=== PATIENT | female | born 1950 | race Caucasian/White ===

== ENCOUNTER 2022-06-30 12:49 | Observation (INO) | payer MEDICARE, OTHER ==
[2022-06-30] MEDS ORDERED: Sodium Chloride 0.9% 1000 ML 1,000 ML IV SCH (13:15)
[2022-06-30 13:42] LABS: Absolute Neutrophil Ct (ANC) 6.93 x10^3/uL (1.4-6.9); Eosinophil % 3.1 % (0.00-5.0); Eosinophil (Absolute #) 0.34 x10^3/uL (0-0.5); Hematocrit 46.9 % (35-47); Hemoglobin 14.5 g/dL (12.0-16.0); Lymphocyte (Absolute #) 2.76 x10^3/uL (1.0-4.6); Lymphocytes % 24.8 % (24.0-44.0); Mean Cell Volume 98.3 fL (78-100); Mean Corpuscular Hemoglobin 30.4 pg (26-32); Mean Corpuscular Hgb Concent. 30.9 g/dL (32-36); Mean Platelet Volume 12.2 fL (7.5-11.0); Monocyte (Absolute #) 0.96 x10^3/uL (0.0-1.3); Monocytes % 8.6 % (0.0-12.0); Neutrophil % 62.3 % (36.0-66.0); Platelet Count 143 x10^3/uL (150-450); Red Blood Count 4.77 x10^6/uL (4.1-5.4); Red Cell Distribution Width 12.7 % (11.5-14.0); White Blood Count 11.1 x10^3/uL (4.0-10.5)
[2022-06-30] MEDS ORDERED: Sodium Chloride 0.9% 1000 ML 1,000 ML ONE (13:42)
[2022-06-30 13:49] LABS: ALBUMIN 3.6 g/dL (3.5-5.0); ANION GAP 8.2 MEQ/L (5-15); BILIRUBIN,TOTAL 0.6 mg/dL (0.2-1.3); Calcium 9.8 mg/dL (8.4-10.2); Creatinine 1 1.66 mg/dL (0.52-1.04); EST GLOMERULAR FILTRATION RATE 32.2 ML/MIN; Potassium 3.4 mmol/L (3.5-5.1); Total Protein 6.5 g/dL (6.3-8.2)
[2022-06-30 13:53] LABS: MAGNESIUM 2.3 mg/dL (1.6-2.3)
--- NOTE | 2022-06-30 14:37 | XRAY ---
Indication: Dementia. Status post fall. Multiple contiguous axial images obtained through the head without contrast. Comparison: None A few images near the vertex are slightly degraded by motion artifact. Age-appropriate global atrophy and moderate/advanced periventricular degenerative micro-ischemia bilaterally. Small remote lacunar infarct right basal ganglia. No gross acute intracranial hemorrhage, abnormal extra-axial fluid collection, or mass effect. Fourth ventricle is midline without hydrocephalus. Bony calvarium grossly intact. Visualized paranasal sinuses and mastoid air cells are clear. Impression: Minimal motion artifact. Grossly nonacute senile brain with remote lacunar infarct right basal ganglia.
[2022-06-30 15:03] LABS: Appearance Turbid (Clear); Bilirubin Negative (Negative); Blood NHT (Negative); Glucose Negative (Negative); Ketones Negative (Negative); Leukocyte Esterase Large (Negative); Nitrite Positive (Negative); Ph 6.5 (4.6-8.0); Protein,Urine Dip 30 (Negative); Specific Gravity 1.025 (1.005-1.030)
[2022-06-30 15:19] LABS: Bacteria Rare /HPF (None Seen); Epithelial Cells Rare /HPF (None Seen)
[2022-06-30 15:23] LABS: ADD URINE CULTURE? NO (NO)
[2022-06-30] MEDS ORDERED: Sodium Chloride 0.9% 500 ML 500 ML IV ONE (15:27)
[2022-06-30] MEDS ORDERED: ROCEPHIN 2 Gm-D5w 50ML BAG** 2 G/50 ML IVPB IV STA (15:45)
[2022-06-30] MEDS ORDERED: ROCEPHIN 2 Gm-D5w 50ML BAG** 2 G/50 ML IVPB IV ONE (16:01)
--- NOTE | 2022-06-30 16:13 | XRAY ---
Indication: Status post fall. Comparison: January 25, 2022 Portable chest demonstrates new minimal right costophrenic angle patchy infiltrate versus atelectasis. Remaining heart and lungs unremarkable again with incidental left hilar calcified nodes. Bony thorax intact again with osteopenia and degenerative changes.
--- NOTE | 2022-06-30 16:13 | XRAY ---
Indication: Pain following fall. Comparison: None 2 portable views right hip demonstrates osteopenia and tiny femur neck bone island. No other bony, articular, or soft tissue abnormalities.
[2022-06-30] MEDS ORDERED: APRESOLINE 20 MG/ML INJ IV ONE ×2 (16:24→18:13)
[2022-06-30] MEDS ORDERED: APRESOLINE 20 MG/ML INJ ONE (16:38)
--- NOTE | 2022-06-30 18:03 | ERPHSYRPT ---
- History of Present Illness Time Seen by Provider: 06/30/22 12:51 Source: patient, EMS, [facility] records Exam Limitations: clinical condition Patient Subjective Stated Complaint: Per nurse (Fariba) at [facility], patient fell at 1220 today. Patient c/o pain in left hip, shoulder, knee when assessed at the facility but staff unable to determine much else due to patient's mental status (dementia). Triage Nursing Assessment: Patient arrived by ambulance. She is alert to self; able to state name and correct date of . Patient is confused to time, place, situation. She does not remember falling. She denies pain anywhere at this time. She was lying on her left side and was able to independely roll over onto her back with verbal cues. She is able to independently draw both knees up herself with verbal cues. LLE is externally rotated but patient is able to move both BLE WNL without difficulties or C/O pain. No skin alterations noted at this time. Patient with a strong odor of urine upon arrival. Physician History: 71 years old resident of [facility] with advanced dementia who walks with a assist, was a little more confused than usual this morning and tried to walk by herself and fell from standing position on her hips. Questionable history of hitting her head. Patient on presentation is moving both lower extremities and a little pain on the palpation of right hip. No obvious injury navarrete. Patient is not in any distress. Patient denies any pain but history is limited secondary to her dementia. Patient is awake alert but not oriented at all which is her baseline. Occurred: just prior to arrival Reason for Fall: fell from standing pos Injuries/Pain Location: lower extremity Loss of Consciousness: no loss of consciousness Associated Symptoms (Fall): confusion Allergies/Adverse Reactions: venom-honey bee [bee venom (honey bee)] Allergy (Severe, Verified 06/30/22 13:08) Swelling of Tongue and Lips celecoxib [From Celebrex] Allergy (Verified 06/30/22 13:08) Penicillins Allergy (Verified 06/30/22 13:08) stay fresh Allergy (Severe, Uncoded 06/30/22 13:08) Swelling of Tongue and Lips produce wash Home Medications: Aspirin 81 gm Chew [Baby Aspirin 81 mg Chew] 81 mg PO DAILY 02/19/15 [History] Bisoprolol/Hydrochlorothiazide [Bisoprolol-Hctz 5-6.25 mg Tab] 1 each PO DAILY 02/19/15 [History] PARoxetine HCL [Paxil] 20 mg PO DAILY 02/19/15 [History] Hydrocodone/Acetaminophen [Vicodin 5-500 Tablet] 1 each PO DAILY PRN 02/26/15 [History] Hx Tetanus, Diphtheria Vaccination/Date Given: Yes Hx Influenza Vaccination/Date Given: Yes Hx Pneumococcal Vaccination/Date Given: Yes Immunizations Up to Date: Yes Travel Risk - International Travel Have you traveled outside of the country in past 3 weeks: No - Coronavirus Screening Are you exhibiting any of the following symptoms?: No Close contact with a COVID-19 positive Pt in past 14-21 Days: No - Vaccine Status Have you recieved a Covid-19 vaccination: No (UNKNOWN) - Review of Systems All Other Systems: Unable due to dementia - Past Medical History Pertinent Past Medical History: Yes Neurological History: Dementia ENT History: No Pertinent History Cardiac History: Arrhythmia, Deep Vein Thrombosis, High Cholesterol, Hypertension Respiratory History: No Pertinent History Endocrine Medical History: No Pertinent History Musculoskeletal History: Arthritis, Fractures, Osteoarthritis, Rheumatoid Arthritis GI Medical History: GI Bleed, Hemorrhoids, Hernia History: No Pertinent History Psycho-Social History: Anxiety, Depression, Panic Disorder Female Reproductive Disorders: Menstrual Problems, Other Other Medical History: rt wrist fx,benign breast tumors, anemia, hyperlipidemia - Past Surgical History Past Surgical History: Yes Neuro Surgical History: No Pertinent History Cardiac: No Pertinent History Respiratory: No Pertinent History Gastrointestinal: No Pertinent History Genitourinary: No Pertinent History Musculoskeletal: No Pertinent History Female Surgical History: Tubal Ligation, Other Other Surgical History: breast surgery tumors removed multiple times - Social History Smoking Status: Former smoker How long have you smoked: 50 years Exposure to second hand smoke: No Drug Use: none Patient Lives Alone: No - Nursing Vital Signs Nursing Vital Signs: Initial Vital Signs Temperature 97.4 F 06/30/22 13:09 Pulse Rate 51 L 06/30/22 13:09 Respiratory Rate 18 06/30/22 13:09 Blood Pressure 185/86 06/30/22 13:09 O2 Sat by Pulse Oximetry 95 06/30/22 13:09 Pain Scale Pain Intensity 0 - Molly Coma Score Best Eye Response ([place]): (4) open spontaneously Best Verbal Response ([place]): (4) confused conversation - Physical Exam General Appearance: no apparent distress, alert Head Injury: no evidence of injury, No Bowie's Sign, No contusions, No swellin g, No tenderness Eye Exam: PERRL/EOMI, eyes nml inspection ENT Exam: airway nml, No evidence of ENT injury, No dental injury Neck Exam: supple, trachea midline, full range of motion, normal alignment Respiratory/Chest Exam: normal breath sounds, No chest tenderness, No respiratory distress Cardiovascular Exam: normal heart sounds, bradycardia Gastrointestinal Exam: soft, normal bowel sounds, No tenderness Back Exam: normal inspection Extremity Exam: normal inspection, normal range of motion, capillary refill <3 sec Neurologic Exam: alert, agriculture internship II-XII nml as tested, sensation nml, No oriented x 3, No cooperative, No normal mood/affect, No motor deficits Skin Exam: normal color SpO2 Interpretation: normal SpO2: 96 O2 Delivery: Room Air Ordered Tests: Active Orders 24 hr Category Date Time Status IV Insertion STAT Care 06/30/22 13:12 Active CERVICAL SPINE WO CONTRAST [CT] Stat Exams 06/30/22 13:10 Completed CHEST 1 VIEW (PORTABLE) Stat Exams 06/30/22 15:23 Completed HEAD WITHOUT CONTRAST [CT] Stat Exams 06/30/22 13:10 Taken HIP UNI (2V) INCL PEL IF DONE Stat Exams 06/30/22 13:14 Completed CBC W DIFF Stat Lab 06/30/22 13:12 Completed CK (IN-HOUSE) [CK-Creatinine Phosphokinase] Stat Lab 06/30/22 13:30 Completed CMP Stat Lab 06/30/22 13:30 Completed CULTURE,URINE Stat Lab 06/30/22 13:41 Received LIPASE Stat Lab 06/30/22 13:30 Completed MAG [MAGNESIUM] Stat Lab 06/30/22 13:30 Completed UA W/RFX UR CULTURE Stat Lab 06/30/22 13:41 Completed Medication Summary Generic Name Dose Route Start Last Admin Trade Name Freq PRN Reason Stop Dose Admin Sodium Chloride 1,000 mls @ 100 mls/hr 06/30/22 13:15 06/30/22 17:06 Sodium Chloride 0.9% 1000 Ml IV 07/30/22 13:14 100 mls/hr .Q10H BIJU Infusion Discontinued Medications Generic Name Dose Route Start Last Admin Trade Name Freq PRN Reason Stop Dose Admin Hydralazine HCl 10 mg 06/30/22 16:24 06/30/22 16:38 Hydralazine Hcl 20 Mg/Ml Vial IV 06/30/22 16:25 10 mg STAT ONE Administration Hydralazine HCl Confirm 06/30/22 16:38 Hydralazine Hcl 20 Mg/Ml Vial Administered 06/30/22 16:39 Dose 20 mg .ROUTE .STK-MED ONE Sodium Chloride 500 mls @ 500 mls/hr 06/30/22 15:27 Sodium Chloride 0.9% 500 Ml IV 06/30/22 16:26 .Q1H ONE Ceftriaxone Sodium/Dextrose 2 g in 50 mls @ 100 mls/hr 06/30/22 15:45 06/30/22 16:46 Rocephin 2 Gm-D5w 50ml Bag IV 06/30/22 16:14 Infused STAT STA Infusion Ceftriaxone Sodium/Dextrose Confirm 06/30/22 16:01 Rocephin 2 Gm-D5w 50ml Bag Administered 06/30/22 16:02 Dose 2 g in 50 mls @ ud IV .STK-MED ONE Lab/Rad Data: Laboratory Result Diagrams 06/30/22 13:12 06/30/22 13:30 Laboratory Results 06/30/22 06/30/22 06/30/22 Range/Units 13:41 13:30 13:30 WBC (4.0-10.5) x10^3/uL RBC (4.1-5.4) x10^6/uL Hgb (12.0-16.0) g/dL Hct (35-47) % MCV (78-100) fL MCH (26-32) pg MCHC (32-36) g/dL RDW (11.5-14.0) % Plt Count (150-450) x10^3/uL MPV (7.5-11.0) fL Gran % (36.0-66.0) % Immature Gran % (Auto) (0.00-0.4) % Nucleat RBC Rel Count (0.00-0.1) % Eos # (Auto) (0-0.5) x10^3/uL Immature Gran # (Auto) (0.00-0.03) x10^3u/L Absolute Lymphs (auto) (1.0-4.6) x10^3/uL Absolute Monos (auto) (0.0-1.3) x10^3/uL Absolute Nucleated RBC (0.00-0.01) x10^3u/L Lymphocytes % (24.0-44.0) % Monocytes % (0.0-12.0) % Eosinophils % (0.00-5.0) % Basophils % (0.0-0.4) % Absolute Granulocytes (1.4-6.9) x10^3/uL Basophils # (0-0.4) x10^3/uL Sodium 140 (137-145) mmol/L Potassium 3.4 L (3.5-5.1) mmol/L Chloride 105 (98-107) mmol/L Carbon Dioxide 30 (22-30) mmol/L Anion Gap 8.2 (5-15) MEQ/L BUN 30 H (7-17) mg/dL Creatinine 1.66 H (0.52-1.04) mg/dL Estimated GFR 32.2 ML/MIN Glucose 114 H (74-106) mg/dL Calcium 9.8 (8.4-10.2) mg/dL Magnesium 2.3 (1.6-2.3) mg/dL Total Bilirubin 0.60 (0.2-1.3) mg/dL AST 19 (14-36) U/L ALT 16 (0-35) U/L Alkaline Phosphatase 75 (38-126) U/L Creatine Kinase 29 L (30-135) U/L Serum Total Protein 6.5 (6.3-8.2) g/dL Albumin 3.6 (3.5-5.0) g/dL Lipase 75 (23-300) U/L Urine Color Yellow (Yellow) Urine Appearance Turbid A (Clear) Urine pH 6.5 (4.6-8.0) Ur Specific [place] 1.025 (1.005-1.030) Urine Protein 30 (Negative) Urine Ketones Negative (Negative) Urine Blood NHT (Negative) Urine Nitrite Positive A (Negative) Urine Bilirubin Negative (Negative) Urine Urobilinogen 1.0 A (0.2) mg/dL Ur Leukocyte Esterase Large A (Negative) Urine Microscopic RBC NONE (0-5) /HPF Urine Microscopic WBC NONE (0-5) /HPF Ur Epithelial Cells Rare (None Seen) /HPF Urine Bacteria Rare A (None Seen) /HPF Urine Culture Reflexed NO (NO) Urine Glucose Negative (Negative) mg/dL 06/30/22 Range/Units 13:12 WBC 11.1 H (4.0-10.5) x10^3/uL RBC 4.77 (4.1-5.4) x10^6/uL Hgb 14.5 (12.0-16.0) g/dL Hct 46.9 (35-47) % MCV 98.3 (78-100) fL MCH 30.4 (26-32) pg MCHC 30.9 L (32-36) g/dL RDW 12.7 (11.5-14.0) % Plt Count 143 L (150-450) x10^3/uL MPV 12.2 H (7.5-11.0) fL Gran % 62.3 (36.0-66.0) % Immature Gran % (Auto) 0.3 (0.00-0.4) % Nucleat RBC Rel Count 0.0 (0.00-0.1) % Eos # (Auto) 0.34 (0-0.5) x10^3/uL Immature Gran # (Auto) 0.03 (0.00-0.03) x10^3u/L Absolute Lymphs (auto) 2.76 (1.0-4.6) x10^3/uL Absolute Monos (auto) 0.96 (0.0-1.3) x10^3/uL Absolute Nucleated RBC 0.00 (0.00-0.01) x10^3u/L Lymphocytes % 24.8 (24.0-44.0) % Monocytes % 8.6 (0.0-12.0) % Eosinophils % 3.1 (0.00-5.0) % Basophils % 0.9 (0.0-0.4) % Absolute Granulocytes 6.93 H (1.4-6.9) x10^3/uL Basophils # 0.10 (0-0.4) x10^3/uL Sodium (137-145) mmol/L Potassium (3.5-5.1) mmol/L Chloride (98-107) mmol/L Carbon Dioxide (22-30) mmol/L Anion Gap (5-15) MEQ/L BUN (7-17) mg/dL Creatinine (0.52-1.04) mg/dL Estimated GFR ML/MIN Glucose (74-106) mg/dL Calcium (8.4-10.2) mg/dL Magnesium (1.6-2.3) mg/dL Total Bilirubin (0.2-1.3) mg/dL AST (14-36) U/L ALT (0-35) U/L Alkaline Phosphatase (38-126) U/L Creatine Kinase (30-135) U/L Serum Total Protein (6.3-8.2) g/dL Albumin (3.5-5.0) g/dL Lipase (23-300) U/L Urine Color (Yellow) Urine Appearance (Clear) Urine pH (4.6-8.0) Ur Specific [place] (1.005-1.030) Urine Protein (Negative) Urine Ketones (Negative) Urine Blood (Negative) Urine Nitrite (Negative) Urine Bilirubin (Negative) Urine Urobilinogen (0.2) mg/dL Ur Leukocyte Esterase (Negative) Urine Microscopic RBC (0-5) /HPF Urine Microscopic WBC (0-5) /HPF Ur Epithelial Cells (None Seen) /HPF Urine Bacteria (None Seen) /HPF Urine Culture Reflexed (NO) Urine Glucose (Negative) mg/dL - Progress Progress: improved Progress Note: 06/30/22 18:01 71 years old with advanced dementia [facility] resident who walks with assistance, was more confused today and tried to walk on her own and fell on the floor from a standing position. Questionable hitting her head. Moving all 4 extremities without any limitation and no obvious signs of injury noticed. Patient is not in any distress on presentation. She is not anticoagulated. W ill obtain CT head and cervical spine which are negative for any acute trauma related findings. Chest x-ray negative for obvious infiltrative process and patient is maintaining oxygen saturation above 95% on room air and lung sounds clear to auscultation. Chemistry showed worsening of kidney function with a baseline around 1.0 last month and today 1.66, given small fluid bolus and gentle hydration we will continue. Does have UTI which probably is the reason for her confusion. Patient blood pressure was in 200 and has not received her routine dose of antihypertensive today. She is given hydralazine added and improved and is in 180s. I have obtained x-rays of right hip and pelvis which a re negative for acute fracture dislocation. Discussed with Dr. Morin and patient is being admitted. Discussed with : Vincent Will see patient in: hospital (observation) Counseled pt/family regarding: lab results, diagnosis, rad results - Departure Departure Disposition: Observation Clinical Impression: Acute UTI, Confusion, Ground-level fall, Uncontrolled hypertension Condition: Stable Critical Care Time: No Referrals: PEDRO LUQUE MD [Primary Care Provider] - Follow up/PCP as directed
[2022-06-30 19:32] LABS: INFLUENZA A NEGATIVE (NEGATIVE); INFLUENZA B NEGATIVE (NEGATIVE); RESPIRATORY SYNCTIAL VIRUS NEGATIVE (Negative); SARS-CoV-2 Xpert Express NEGATIVE (NEGATIVE)
[2022-06-30] MEDS ORDERED: TYLENOL 325 MG PO PRN (20:38)
[2022-06-30] MEDS ORDERED: PROVENTIL 2.5 MG/3 ML NEB IH PRN (20:38)
[2022-06-30] MEDS ORDERED: Zofran 4 MG/2 ML VIAL IV PRN (20:38)
[2022-06-30] MEDS: Sodium Chloride 0.9% W/ 20 mEq KCl/LITER 1,000 ML IV SCH (21:19)
[2022-06-30] MEDS ORDERED: REMERON 30 MG ONE (23:36)
[2022-06-30] MEDS ORDERED: Zocor 10MG ONE (23:36)
[2022-06-30] MEDS ORDERED: Librium 10 MG ONE (23:36)
[2022-06-30] MEDS ORDERED: Aricept 10 MG ONE (23:37)
[2022-06-30] MEDS: Namenda 5 MG PO SCH (23:39)
[2022-06-30] MEDS: Librium 10 MG PO SCH (23:39)
[2022-06-30] MEDS: Aricept 10 MG PO SCH (23:39)
[2022-06-30] MEDS: Zocor 10MG PO SCH (23:39)
[2022-06-30] MEDS: REMERON 30 MG PO SCH (23:40)
[2022-07-01 06:14] LABS: Absolute Neutrophil Ct (ANC) 5.54 x10^3/uL (1.4-6.9); Eosinophil % 3.8 % (0.00-5.0); Eosinophil (Absolute #) 0.34 x10^3/uL (0-0.5); Hematocrit 43.1 % (35-47); Hemoglobin 13.6 g/dL (12.0-16.0); Lymphocyte (Absolute #) 2.16 x10^3/uL (1.0-4.6); Lymphocytes % 24.2 % (24.0-44.0); Mean Cell Volume 96.4 fL (78-100); Mean Corpuscular Hemoglobin 30.4 pg (26-32); Mean Corpuscular Hgb Concent. 31.6 g/dL (32-36); Monocyte (Absolute #) 0.77 x10^3/uL (0.0-1.3); Monocytes % 8.6 % (0.0-12.0); Neutrophil % 62.2 % (36.0-66.0); Platelet Count 157 x10^3/uL (150-450); Red Blood Count 4.47 x10^6/uL (4.1-5.4); Red Cell Distribution Width 12.9 % (11.5-14.0); White Blood Count 8.9 x10^3/uL (4.0-10.5)
[2022-07-01 06:41] LABS: ALBUMIN 3.1 g/dL (3.5-5.0); ANION GAP 5.3 MEQ/L (5-15); BILIRUBIN,TOTAL 0.5 mg/dL (0.2-1.3); Calcium 9.3 mg/dL (8.4-10.2); Creatinine 1 1.17 mg/dL (0.52-1.04); EST GLOMERULAR FILTRATION RATE 48.2 ML/MIN; Potassium 4.2 mmol/L (3.5-5.1); Total Protein 5.8 g/dL (6.3-8.2)
[2022-07-01] MEDS: Sodium Chloride 0.9% W/ 20 mEq KCl/LITER 1,000 ML IV SCH ×2 (07:04→17:42)
[2022-07-01] MEDS: PROTONIX 40 MG IV IV SCH (10:35)
[2022-07-01] MEDS: ROCEPHIN 1 Gm-D5w 50 ml Bag** 1 G/50 ML IVPB IV SCH (10:35)
--- NOTE | 2022-07-01 11:13 | PCM.HP ---
History of Present Illness - Chief Complaint Chief Complaint: Acute UTI, confusion, ground-level fall, uncontrolled hyper tension History of Present Illness: is a 71 year old female patient with advanced dementia who resides at [facility] intermediate who presented to ER with increased confusion and a ground level fall - Review of Systems Constitutional: Lethargy, Other (unable to give ROS) Medications & Allergies Home Medications: Home Medication List Bisoprolol/Hydrochlorothiazide [Bisoprolol-Hctz 5-6.25 mg Tab] 1 each PO DAILY 02/19/15 [History Confirmed 06/30/22] PARoxetine HCL [Paxil] 30 mg PO DAILY 02/19/15 [History Confirmed 06/30/22] Acetaminophen 500 mg [Tylenol Extra Strength 500 mg] 500 mg PO BID 06/30/22 [History Confirmed 06/30/22] Atorvastatin Calcium 10 mg PO HS 06/30/22 [History Confirmed 06/30/22] Bisacodyl 10 mg [Dulcolax 10 MG SUPP] 10 mg RC DAILY PRN PRN 06/30/22 [History Confirmed 06/30/22] Chlordiazepoxide HCl 10 mg [Librium 10 MG] 10 mg PO DAILY 06/30/22 [History Confirmed 06/30/22] Chlordiazepoxide HCl 10 mg [Librium 10 MG] 20 mg PO HS 06/30/22 [History Confirmed 06/30/22] Cran/Vitc/Mannose/Fos/Bromeln [Uti-Stat Liquid] 30 ml PO TID 06/30/22 [History Confirmed 06/30/22] Donepezil HCl 10 mg [Aricept 10 MG] 10 mg PO HS 06/30/22 [History Confirmed 06/30/22] Famotidine [Pepcid AC] 10 mg PO DAILY 06/30/22 [History Confirmed 06/30/22] Magnesium Hydroxide 30 ml [Milk of Magnesia 30 ml] 30 ml PO DAILY PRN PRN 06/30/22 [History Confirmed 06/30/22] Memantine HCl 5 mg [Namenda 5 MG] 5 mg PO BID 06/30/22 [History Confirmed 06/30/22] Mirtazapine 30 mg [Remeron 30 mg] 30 mg PO HS 06/30/22 [History Confirmed 06/30/22] Sodium Phosphate,[place]-Dibasic [Fleet Enema] 133 ml RC DAILY PRN PRN 06/30/22 [History Confirmed 06/30/22] Sumatriptan Succinate [Imitrex] 25 mg PO DAILY PRN PRN 06/30/22 [History Confirmed 06/30/22] Thiamine HCl 100 mg [Vitamin B-1 100 mg] 100 mg PO DAILY 06/30/22 [History Confirmed 06/30/22] Torsemide 10 mg PO DAILY 06/30/22 [History Confirmed 06/30/22] Cephalexin Mh 500 mg [Keflex 500 mg] 500 mg PO QID 10 Days #40 cap 07/02/22 [Rx] Allergies/Adverse Reactions: Allergies Allergy/AdvReac Type Severity Reaction Status Date / Time venom-honey bee Allergy Severe Swelling Verified 06/30/22 13:08 [bee venom (honey bee)] of Tongue and Lips celecoxib [From Celebrex] Allergy Verified 06/30/22 13:08 Penicillins Allergy Verified 06/30/22 13:08 stay fresh Allergy Severe Swelling Uncoded 06/30/22 13:08 of Tongue and Lips - Past Medical History Past Medical History: Yes Neurological History: Dementia ENT History: No Pertinent History Cardiac History: Arrhythmia, Deep Vein Thrombosis, High Cholesterol, Hypertension Respiratory History: No Pertinent History Endocrine Medical History: No Pertinent History Musculoskelatal History: Arthritis, Fractures, Osteoarthritis, Rheumatoid Arthritis GI Medical History: GI Bleed, Hemorrhoids, Hernia History: No Pertinent History Pyscho-Social History: Anxiety, Depression, Panic Disorder Reproductive Disorders: Menstrual Problems, Other Comment: rt wrist fx,benign breast tumors, anemia, hyperlipidemia - Female History Are you now?: No - Past Surgical History Past Surgical History: Yes Neuro Surgical History: No Pertinent History Cardiac History: No Pertinent History Respiratory Surgery: No Pertinent History GI Surgical History: No Pertinent History Genitourinary Surgical Hx: No Pertinent History Musculskeletal Surgical Hx: No Pertinent History Female Surgical History: Tubal Ligation, Other Other Surgical History: breast surgery tumors removed multiple times - Social History Smoking Status: Former smoker How long have you smoked: 50 years Exposure to second hand smoke: No Alcohol: None Drug Use: none - Physical Exam Vital Signs: Vital Signs - 24 hr Temp Pulse Resp BP Pulse Ox 07/01/22 07:59 97.7 F 58 L 17 182/75 95 07/01/22 04:00 97.5 F 54 L 16 191/74 93 L 07/01/22 00:00 53 L 26 H 06/30/22 21:34 98.4 F 61 20 164/70 95 06/30/22 20:54 58 L 20 96 06/30/22 19:00 61 177/87 97 06/30/22 18:06 96 06/30/22 15:32 60 20 215/107 96 06/30/22 14:26 52 L 20 206/96 98 06/30/22 13:09 97.4 F 51 L 18 185/86 95 General Appearance: no apparent distress Neurologic Exam: alert (not oriented to place or time), other (follows simple commands) Eye Exam: eyes nml inspection Ears, Nose, Throat Exam: normal ENT inspection Neck Exam: normal inspection Respiratory Exam: normal breath sounds Cardiovascular Exam: regular rate/rhythm Gastrointestinal/Abdomen Exam: soft, normal bowel sounds (nontender) Back Exam: normal inspection, other (no tenderness) Extremity Exam: other (moves all extremities) Skin Exam: normal color, warm, dry Results - Labs Lab/Micro Results: Lab Results-Last 24 Hours 06/30/22 06/30/22 06/30/22 Range/Units 13:12 13:30 13:30 WBC 11.1 H (4.0-10.5) x10^3/uL RBC 4.77 (4.1-5.4) x10^6/uL Hgb 14.5 (12.0-16.0) g/dL Hct 46.9 (35-47) % MCV 98.3 (78-100) fL MCH 30.4 (26-32) pg MCHC 30.9 L (32-36) g/dL RDW 12.7 (11.5-14.0) % Plt Count 143 L (150-450) x10^3/uL MPV 12.2 H (7.5-11.0) fL Gran % 62.3 (36.0-66.0) % Immature Gran % (Auto) 0.3 (0.00-0.4) % Nucleat RBC Rel Count 0.0 (0.00-0.1) % Eos # (Auto) 0.34 (0-0.5) x10^3/uL Immature Gran # (Auto) 0.03 (0.00-0.03) x10^3u/L Absolute Lymphs (auto) 2.76 (1.0-4.6) x10^3/uL Absolute Monos (auto) 0.96 (0.0-1.3) x10^3/uL Absolute Nucleated RBC 0.00 (0.00-0.01) x10^3u/L Lymphocytes % 24.8 (24.0-44.0) % Monocytes % 8.6 (0.0-12.0) % Eosinophils % 3.1 (0.00-5.0) % Basophils % 0.9 (0.0-0.4) % Absolute Granulocytes 6.93 H (1.4-6.9) x10^3/uL Basophils # 0.10 (0-0.4) x10^3/uL Sodium 140 (137-145) mmol/L Potassium 3.4 L (3.5-5.1) mmol/L Chloride 105 (98-107) mmol/L Carbon Dioxide 30 (22-30) mmol/L Anion Gap 8.2 (5-15) MEQ/L BUN 30 H (7-17) mg/dL Creatinine 1.66 H (0.52-1.04) mg/dL Estimated GFR 32.2 ML/MIN Glucose 114 H (74-106) mg/dL Calcium 9.8 (8.4-10.2) mg/dL Magnesium 2.3 (1.6-2.3) mg/dL Total Bilirubin 0.60 (0.2-1.3) mg/dL AST 19 (14-36) U/L ALT 16 (0-35) U/L Alkaline Phosphatase 75 (38-126) U/L Creatine Kinase 29 L (30-135) U/L Serum Total Protein 6.5 (6.3-8.2) g/dL Albumin 3.6 (3.5-5.0) g/dL Lipase 75 (23-300) U/L Urine Color (Yellow) Urine Appearance (Clear) Urine pH (4.6-8.0) Ur Specific [place] (1.005-1.030) Urine Protein (Negative) Urine Ketones (Negative) Urine Blood (Negative) Urine Nitrite (Negative) Urine Bilirubin (Negative) Urine Urobilinogen (0.2) mg/dL Ur Leukocyte Esterase (Negative) Urine Microscopic RBC (0-5) /HPF Urine Microscopic WBC (0-5) /HPF Ur Epithelial Cells (None Seen) /HPF Urine Bacteria (None Seen) /HPF Urine Culture Reflexed (NO) Urine Glucose (Negative) mg/dL Influenza Type A Ag (NEGATIVE) Influenza Type B Ag (NEGATIVE) RSV (PCR) (Negative) SARS-CoV-2 (PCR) (NEGATIVE) 06/30/22 06/30/22 07/01/22 Range/Units 13:41 18:15 05:30 WBC 8.9 (4.0-10.5) x10^3/uL RBC 4.47 (4.1-5.4) x10^6/uL Hgb 13.6 (12.0-16.0) g/dL Hct 43.1 (35-47) % MCV 96.4 (78-100) fL MCH 30.4 (26-32) pg MCHC 31.6 L (32-36) g/dL RDW 12.9 (11.5-14.0) % Plt Count 157 (150-450) x10^3/uL MPV 13.0 H (7.5-11.0) fL Gran % 62.2 (36.0-66.0) % Immature Gran % (Auto) 0.1 (0.00-0.4) % Nucleat RBC Rel Count 0.0 (0.00-0.1) % Eos # (Auto) 0.34 (0-0.5) x10^3/uL Immature Gran # (Auto) 0.01 (0.00-0.03) x10^3u/L Absolute Lymphs (auto) 2.16 (1.0-4.6) x10^3/uL Absolute Monos (auto) 0.77 (0.0-1.3) x10^3/uL Absolute Nucleated RBC 0.00 (0.00-0.01) x10^3u/L Lymphocytes % 24.2 (24.0-44.0) % Monocytes % 8.6 (0.0-12.0) % Eosinophils % 3.8 (0.00-5.0) % Basophils % 1.1 (0.0-0.4) % Absolute Granulocytes 5.54 (1.4-6.9) x10^3/uL Basophils # 0.10 (0-0.4) x10^3/uL Sodium (137-145) mmol/L Potassium (3.5-5.1) mmol/L Chloride (98-107) mmol/L Carbon Dioxide (22-30) mmol/L Anion Gap (5-15) MEQ/L BUN (7-17) mg/dL Creatinine (0.52-1.04) mg/dL Estimated GFR ML/MIN Glucose (74-106) mg/dL Calcium (8.4-10.2) mg/dL Magnesium (1.6-2.3) mg/dL Total Bilirubin (0.2-1.3) mg/dL AST (14-36) U/L ALT (0-35) U/L Alkaline Phosphatase (38-126) U/L Creatine Kinase (30-135) U/L Serum Total Protein (6.3-8.2) g/dL Albumin (3.5-5.0) g/dL Lipase (23-300) U/L Urine Color Yellow (Yellow) Urine Appearance Turbid A (Clear) Urine pH 6.5 (4.6-8.0) Ur Specific [place] 1.025 (1.005-1.030) Urine Protein 30 (Negative) Urine Ketones Negative (Negative) Urine Blood NHT (Negative) Urine Nitrite Positive A (Negative) Urine Bilirubin Negative (Negative) Urine Urobilinogen 1.0 A (0.2) mg/dL Ur Leukocyte Esterase Large A (Negative) Urine Microscopic RBC NONE (0-5) /HPF Urine Microscopic WBC NONE (0-5) /HPF Ur Epithelial Cells Rare (None Seen) /HPF Urine Bacteria Rare A (None Seen) /HPF Urine Culture Reflexed NO (NO) Urine Glucose Negative (Negative) mg/dL Influenza Type A Ag NEGATIVE (NEGATIVE) Influenza Type B Ag NEGATIVE (NEGATIVE) RSV (PCR) NEGATIVE (Negative) SARS-CoV-2 (PCR) NEGATIVE (NEGATIVE) 07/01/22 Range/Units 05:30 WBC (4.0-10.5) x10^3/uL RBC (4.1-5.4) x10^6/uL Hgb (12.0-16.0) g/dL Hct (35-47) % MCV (78-100) fL MCH (26-32) pg MCHC (32-36) g/dL RDW (11.5-14.0) % Plt Count (150-450) x10^3/uL MPV (7.5-11.0) fL Gran % (36.0-66.0) % Immature Gran % (Auto) (0.00-0.4) % Nucleat RBC Rel Count (0.00-0.1) % Eos # (Auto) (0-0.5) x10^3/uL Immature Gran # (Auto) (0.00-0.03) x10^3u/L Absolute Lymphs (auto) (1.0-4.6) x10^3/uL Absolute Monos (auto) (0.0-1.3) x10^3/uL Absolute Nucleated RBC (0.00-0.01) x10^3u/L Lymphocytes % (24.0-44.0) % Monocytes % (0.0-12.0) % Eosinophils % (0.00-5.0) % Basophils % (0.0-0.4) % Absolute Granulocytes (1.4-6.9) x10^3/uL Basophils # (0-0.4) x10^3/uL Sodium 140 (137-145) mmol/L Potassium 4.2 D (3.5-5.1) mmol/L Chloride 113 H (98-107) mmol/L Carbon Dioxide 26 (22-30) mmol/L Anion Gap 5.3 (5-15) MEQ/L BUN 24 H (7-17) mg/dL Creatinine 1.17 H (0.52-1.04) mg/dL Estimated GFR 48.2 ML/MIN Glucose 88 (74-106) mg/dL Calcium 9.3 (8.4-10.2) mg/dL Magnesium (1.6-2.3) mg/dL Total Bilirubin 0.50 (0.2-1.3) mg/dL AST 21 (14-36) U/L ALT 14 (0-35) U/L Alkaline Phosphatase 65 (38-126) U/L Creatine Kinase (30-135) U/L Serum Total Protein 5.8 L (6.3-8.2) g/dL Albumin 3.1 L (3.5-5.0) g/dL Lipase (23-300) U/L Urine Color (Yellow) Urine Appearance (Clear) Urine pH (4.6-8.0) Ur Specific [place] (1.005-1.030) Urine Protein (Negative) Urine Ketones (Negative) Urine Blood (Negative) Urine Nitrite (Negative) Urine Bilirubin (Negative) Urine Urobilinogen (0.2) mg/dL Ur Leukocyte Esterase (Negative) Urine Microscopic RBC (0-5) /HPF Urine Microscopic WBC (0-5) /HPF Ur Epithelial Cells (None Seen) /HPF Urine Bacteria (None Seen) /HPF Urine Culture Reflexed (NO) Urine Glucose (Negative) mg/dL Influenza Type A Ag (NEGATIVE) Influenza Type B Ag (NEGATIVE) RSV (PCR) (Negative) SARS-CoV-2 (PCR) (NEGATIVE) Microbiology 06/30/22 13:41 Urine Culture - Preliminary Catherized GRAM NEGATIVE ID AND SENSITIVITY PENDING - Radiology Impressions Radiology Exams & Impressions: Radiology Procedures Category Date Time Status CERVICAL SPINE WO CONTRAST [CT] Stat Exams 06/30/22 13:10 Completed CHEST 1 VIEW (PORTABLE) Stat Exams 06/30/22 15:23 Completed HEAD WITHOUT CONTRAST [CT] Stat Exams 06/30/22 13:10 Taken HIP UNI (2V) INCL PEL IF DONE Stat Exams 06/30/22 13:14 Completed Assessment/Plan (1) Ground-level fall Current Visit: Yes Status: Resolved Code(s): W18.30XA - FALL ON SAME LEVEL, UNSPECIFIED, INITIAL ENCOUNTER (2) Confusion Current Visit: Yes Status: Acute Assessment & Plan: improved Code(s): R41.0 - DISORIENTATION, UNSPECIFIED (3) Dementia Current Visit: Yes Status: Chronic Code(s): F03.90 - UNSPECIFIED DEMENTIA WITHOUT BEHAVIORAL DISTURBANCE (4) Acute UTI Current Visit: Yes Status: Resolved Assessment & Plan: culture pending,is on Rocephin IV Code(s): N39.0 - URINARY TRACT INFECTION, SITE NOT SPECIFIED (5) HTN (hypertension) Current Visit: Yes Status: Acute Code(s): I10 - ESSENTIAL (PRIMARY) HYPERTENSION
[2022-07-01] MEDS: Apresoline 25 MG TABLET PO PRN (12:42)
[2022-07-01] MEDS: Namenda 5 MG PO SCH ×2 (12:42→22:29)
[2022-07-01] MEDS ORDERED: Dulcolax 10 MG SUPP RC PRN (12:55)
[2022-07-01] MEDS ORDERED: SUMATRIPTAN SUCCINATE 25 MG PO PRN (12:55)
[2022-07-01] MEDS ORDERED: MILK OF MAGNESIA 30 ML PO PRN (12:55)
[2022-07-01] MEDS ORDERED: NON-FORMULARY ITEM (Sodium Phosphate,Mono-Dibasic [Fleet Enema] 133 ML Enema) RC PRN (12:55)
[2022-07-01] MEDS ORDERED: MEDICATION INTERVENTION MC SCH ×3 (13:15)
[2022-07-01] MEDS ORDERED: PHARMACY DOSING REQUEST MC ONE (13:33)
[2022-07-01] MEDS: VITAMIN B-1 100 MG PO SCH (13:37)
[2022-07-01] MEDS: Paxil 20 MG PO SCH (13:38)
[2022-07-01] MEDS: Pepcid 20 MG PO SCH (13:39)
[2022-07-01] MEDS: TYLENOL EXTRA STRENGTH 500 MG PO SCH ×2 (13:40→22:30)
[2022-07-01] MEDS: DEMADEX 20 MG PO SCH (13:41)
[2022-07-01] MEDS: Librium 10 MG PO SCH ×2 (13:44→22:29)
[2022-07-01] MEDS: xanAX 0.25 MG PO PRN (14:05)
[2022-07-01] MEDS: hydroDIURIL 25 MG PO SCH (14:22)
[2022-07-01] MEDS: Lopressor 25MG Tab PO SCH (14:23)
[2022-07-01] MEDS ORDERED: VITC PO SCH (15:00)
[2022-07-01] MEDS ORDERED: MANNOSE PO SCH (15:00)
[2022-07-01] MEDS ORDERED: FOS PO SCH (15:00)
[2022-07-01] MEDS ORDERED: [UNRECOGNIZED DRUG - OTHER] PO SCH (15:00)
[2022-07-01] MEDS ORDERED: CRAN PO SCH (15:00)
[2022-07-01] MEDS ORDERED: BROMELN PO SCH (15:00)
[2022-07-01] MEDS: MORPHINE SULFATE 2 MG INJ IV PRN (17:42)
[2022-07-01] MEDS: Zocor 10MG PO SCH (22:29)
[2022-07-01] MEDS: Aricept 10 MG PO SCH (22:29)
[2022-07-01] MEDS: REMERON 30 MG PO SCH (22:30)
[2022-07-02] MEDS: Sodium Chloride 0.9% W/ 20 mEq KCl/LITER 1,000 ML IV SCH (04:07)
[2022-07-02] MEDS: Apresoline 25 MG TABLET PO PRN (04:19)
[2022-07-02 06:02] LABS: Absolute Neutrophil Ct (ANC) 5.97 x10^3/uL (1.4-6.9); Basophil (Absolute #) 0.09 x10^3/uL (0-0.4); Eosinophil % 4.1 % (0.00-5.0); Eosinophil (Absolute #) 0.41 x10^3/uL (0-0.5); Hematocrit 44.4 % (35-47); Hemoglobin 14.3 g/dL (12.0-16.0); Lymphocyte (Absolute #) 2.55 x10^3/uL (1.0-4.6); Lymphocytes % 25.8 % (24.0-44.0); Mean Cell Volume 95.1 fL (78-100); Mean Corpuscular Hemoglobin 30.6 pg (26-32); Mean Corpuscular Hgb Concent. 32.2 g/dL (32-36); Mean Platelet Volume 12.4 fL (7.5-11.0); Monocyte (Absolute #) 0.83 x10^3/uL (0.0-1.3); Monocytes % 8.4 % (0.0-12.0); Neutrophil % 60.4 % (36.0-66.0); Platelet Count 146 x10^3/uL (150-450); Red Blood Count 4.67 x10^6/uL (4.1-5.4); Red Cell Distribution Width 13.1 % (11.5-14.0); White Blood Count 9.9 x10^3/uL (4.0-10.5)
[2022-07-02 06:41] LABS: ALBUMIN 3.3 g/dL (3.5-5.0); ANION GAP 7.4 MEQ/L (5-15); BILIRUBIN,TOTAL 0.6 mg/dL (0.2-1.3); Calcium 9.6 mg/dL (8.4-10.2); Creatinine 1 1.15 mg/dL (0.52-1.04); EST GLOMERULAR FILTRATION RATE 49.2 ML/MIN; Potassium 3.7 mmol/L (3.5-5.1); Total Protein 6.2 g/dL (6.3-8.2)
[2022-07-02] MEDS: Librium 10 MG PO SCH ×2 (08:07→21:40)
[2022-07-02] MEDS: Paxil 20 MG PO SCH (08:07)
[2022-07-02] MEDS: VITAMIN B-1 100 MG PO SCH (08:07)
[2022-07-02] MEDS: TYLENOL EXTRA STRENGTH 500 MG PO SCH ×2 (08:08→21:40)
[2022-07-02] MEDS: hydroDIURIL 25 MG PO SCH (08:08)
[2022-07-02] MEDS: Namenda 5 MG PO SCH ×2 (08:08→21:40)
[2022-07-02] MEDS: Lopressor 25MG Tab PO SCH (08:09)
[2022-07-02] MEDS: DEMADEX 20 MG PO SCH (08:09)
[2022-07-02] MEDS: Pepcid 20 MG PO SCH (08:10)
[2022-07-02] MEDS: PROTONIX 40 MG IV IV SCH (08:10)
[2022-07-02] MEDS: MORPHINE SULFATE 2 MG INJ IV PRN (08:18)
[2022-07-02] MEDS: xanAX 0.25 MG PO PRN ×3 (08:23→22:07)
[2022-07-02] MEDS: ROCEPHIN 1 Gm-D5w 50 ml Bag** 1 G/50 ML IVPB IV SCH (08:32)
[2022-07-02] MEDS ORDERED: NON-FORMULARY ITEM (Torsemide [Torsemide] 10 MG Tablet) PO SCH (10:00)
[2022-07-02] MEDS ORDERED: FAMOTIDINE 10 MG PO SCH (10:00)
[2022-07-02] MEDS: Apresoline 25 MG TABLET PO SCH ×2 (16:35→21:39)
[2022-07-02] MEDS: REMERON 30 MG PO SCH (21:39)
[2022-07-02] MEDS: Zocor 10MG PO SCH (21:40)
[2022-07-02] MEDS: Aricept 10 MG PO SCH (21:40)
[2022-07-03] MEDS: MORPHINE SULFATE 2 MG INJ IV PRN ×2 (02:24→17:57)
[2022-07-03 06:28] LABS: Absolute Neutrophil Ct (ANC) 4.72 x10^3/uL (1.4-6.9); Basophil (Absolute #) 0.08 x10^3/uL (0-0.4); Eosinophil % 5.8 % (0.00-5.0); Eosinophil (Absolute #) 0.48 x10^3/uL (0-0.5); Hematocrit 46.3 % (35-47); Hemoglobin 14.8 g/dL (12.0-16.0); Lymphocyte (Absolute #) 2.27 x10^3/uL (1.0-4.6); Lymphocytes % 27.4 % (24.0-44.0); Mean Cell Volume 94.3 fL (78-100); Mean Corpuscular Hemoglobin 30.1 pg (26-32); Mean Platelet Volume 12.9 fL (7.5-11.0); Monocyte (Absolute #) 0.71 x10^3/uL (0.0-1.3); Monocytes % 8.6 % (0.0-12.0); Neutrophil % 57.1 % (36.0-66.0); Platelet Count 150 x10^3/uL (150-450); Red Blood Count 4.91 x10^6/uL (4.1-5.4); Red Cell Distribution Width 13.1 % (11.5-14.0); White Blood Count 8.3 x10^3/uL (4.0-10.5)
[2022-07-03 06:58] LABS: ALBUMIN 3.6 g/dL (3.5-5.0); ANION GAP 6.9 MEQ/L (5-15); BILIRUBIN,TOTAL 0.7 mg/dL (0.2-1.3); Calcium 9.8 mg/dL (8.4-10.2); Creatinine 1 1.33 mg/dL (0.52-1.04); EST GLOMERULAR FILTRATION RATE 41.6 ML/MIN; Total Protein 6.5 g/dL (6.3-8.2)
[2022-07-03] MEDS ORDERED: POTASSIUM CHLORIDE 20 mEq IN WATER 100ML 100 ML IV SCH (08:00)
[2022-07-03] MEDS ORDERED: Sodium Chloride 0.9% 500 ML 500 ML IV ONE (09:12)
[2022-07-03] MEDS: VITAMIN B-1 100 MG PO SCH (09:52)
[2022-07-03] MEDS: PROTONIX 40 MG IV IV SCH (09:52)
[2022-07-03] MEDS: DEMADEX 20 MG PO SCH (09:52)
[2022-07-03] MEDS: Lopressor 25MG Tab PO SCH (09:53)
[2022-07-03] MEDS: TYLENOL EXTRA STRENGTH 500 MG PO SCH ×2 (09:53→20:55)
[2022-07-03] MEDS: Namenda 5 MG PO SCH ×2 (09:54→20:56)
[2022-07-03] MEDS: Pepcid 20 MG PO SCH (09:54)
[2022-07-03] MEDS: Paxil 20 MG PO SCH (09:54)
[2022-07-03] MEDS: Librium 10 MG PO SCH ×2 (09:55→20:55)
[2022-07-03] MEDS: hydroDIURIL 25 MG PO SCH (09:56)
[2022-07-03] MEDS: Apresoline 25 MG TABLET PO SCH ×3 (09:57→20:55)
[2022-07-03] MEDS: ROCEPHIN 1 Gm-D5w 50 ml Bag** 1 G/50 ML IVPB IV SCH (10:53)
[2022-07-03] MEDS: Klor Con PO SCH ×3 (12:12→16:19)
[2022-07-03] MEDS: Aricept 10 MG PO SCH (20:55)
[2022-07-03] MEDS: Zocor 10MG PO SCH (20:56)
[2022-07-03] MEDS: REMERON 30 MG PO SCH (20:56)
[2022-07-04 05:31] LABS: Absolute Neutrophil Ct (ANC) 4.74 x10^3/uL (1.4-6.9); Basophil (Absolute #) 0.08 x10^3/uL (0-0.4); Eosinophil (Absolute #) 0.51 x10^3/uL (0-0.5); Hemoglobin 14.5 g/dL (12.0-16.0); Lymphocyte (Absolute #) 2.49 x10^3/uL (1.0-4.6); Lymphocytes % 29.2 % (24.0-44.0); Mean Cell Volume 94.1 fL (78-100); Mean Corpuscular Hemoglobin 30.3 pg (26-32); Mean Corpuscular Hgb Concent. 32.2 g/dL (32-36); Mean Platelet Volume 12.5 fL (7.5-11.0); Monocyte (Absolute #) 0.69 x10^3/uL (0.0-1.3); Monocytes % 8.1 % (0.0-12.0); Neutrophil % 55.6 % (36.0-66.0); Platelet Count 148 x10^3/uL (150-450); Red Blood Count 4.78 x10^6/uL (4.1-5.4); Red Cell Distribution Width 12.8 % (11.5-14.0); White Blood Count 8.5 x10^3/uL (4.0-10.5)
[2022-07-04 06:03] LABS: ANION GAP 6.8 MEQ/L (5-15); Calcium 9.9 mg/dL (8.4-10.2); Creatinine 1 1.47 mg/dL (0.52-1.04); Potassium 3.5 mmol/L (3.5-5.1)
[2022-07-04] MEDS: Pepcid 20 MG PO SCH (09:56)
[2022-07-04] MEDS: TYLENOL EXTRA STRENGTH 500 MG PO SCH (09:57)
[2022-07-04] MEDS: Librium 10 MG PO SCH (09:58)
[2022-07-04] MEDS: Namenda 5 MG PO SCH (09:58)
[2022-07-04] MEDS: VITAMIN B-1 100 MG PO SCH (09:58)
[2022-07-04] MEDS: Paxil 20 MG PO SCH (09:58)
[2022-07-04] MEDS: hydroDIURIL 25 MG PO SCH (09:59)
[2022-07-04] MEDS: Lopressor 25MG Tab PO SCH (09:59)
[2022-07-04] MEDS: DEMADEX 20 MG PO SCH (10:00)
[2022-07-04] MEDS ORDERED: Klor Con PO SCH (10:00)
[2022-07-04] MEDS: PROTONIX 40 MG IV IV SCH (10:03)
[2022-07-04] MEDS: ROCEPHIN 1 Gm-D5w 50 ml Bag** 1 G/50 ML IVPB IV SCH (10:19)
[2022-07-04] MEDS: Apresoline 25 MG TABLET PO SCH ×2 (10:19→16:03)
[2022-07-04 11:42] VITALS: BP 150/56; PULSE 51; O2SAT 96
--- NOTE | 2022-07-04 12:42 | PCM.DS ---
Discharge Summary Date of Admission: 06/30/22 20:29 Date of Discharge: 07/04/22 Admitting Physician: NEIL PARKER Primary Care Provider: ENE,PEDRO Allergies Allergies venom-honey bee [bee venom (honey bee)] Allergy (Severe, Verified 06/30/22 13:08) Swelling of Tongue and Lips celecoxib [From Celebrex] Allergy (Verified 06/30/22 13:08) Penicillins Allergy (Verified 06/30/22 13:08) stay fresh Allergy (Severe, Uncoded 06/30/22 13:08) Swelling of Tongue and Lips produce wash Hospital Summary - Hospital Course Hospital Course: Patient was admitted with confusion and a ground level fall without injury. ER Dg UTI and patient was treated with IV Rocephin x 5days , urine culture + for Citrobacter Freundii which is sensitive to Rocephin.Patient has severe dementia and will be discharged back to [facility]. HTN -will need continued monitoring. - Vitals & Intake/Output Vital Signs: Vital Signs Temperature 97.8 F 07/04/22 11:41 Pulse Rate 51 L 07/04/22 11:41 Respiratory Rate 18 07/04/22 11:41 Blood Pressure 150/56 07/04/22 11:41 O2 Sat by Pulse Oximetry 96 07/04/22 11:41 Intake & Output: Intake & Output 07/02/22 07/03/22 07/04/22 07/05/22 11:59 11:59 11:59 11:59 Intake Total 630 054 6439 Balance 533 684 8590 Weight 86.6 kg 86.3 kg 84.2 kg - Lab Result Diagrams: 07/04/22 05:22 07/04/22 05:22 Lab Results-Last 24 Hrs: Lab Results-Last 24 Hours 07/03/22 07/03/22 07/04/22 Range/Units 12:38 18:38 05:22 WBC 8.5 (4.0-10.5) x10^3/uL RBC 4.78 (4.1-5.4) x10^6/uL Hgb 14.5 (12.0-16.0) g/dL Hct 45.0 (35-47) % MCV 94.1 (78-100) fL MCH 30.3 (26-32) pg MCHC 32.2 (32-36) g/dL RDW 12.8 (11.5-14.0) % Plt Count 148 L (150-450) x10^3/uL MPV 12.5 H (7.5-11.0) fL Gran % 55.6 (36.0-66.0) % Immature Gran % (Auto) 0.2 (0.00-0.4) % Nucleat RBC Rel Count 0.0 (0.00-0.1) % Eos # (Auto) 0.51 H (0-0.5) x10^3/uL Immature Gran # (Auto) 0.02 (0.00-0.03) x10^3u/L Absolute Lymphs (auto) 2.49 (1.0-4.6) x10^3/uL Absolute Monos (auto) 0.69 (0.0-1.3) x10^3/uL Absolute Nucleated RBC 0.00 (0.00-0.01) x10^3u/L Lymphocytes % 29.2 (24.0-44.0) % Monocytes % 8.1 (0.0-12.0) % Eosinophils % 6.0 H (0.00-5.0) % Basophils % 0.9 (0.0-0.4) % Absolute Granulocytes 4.74 (1.4-6.9) x10^3/uL Basophils # 0.08 (0-0.4) x10^3/uL Sodium (137-145) mmol/L Potassium 3.4 L 3.9 (3.5-5.1) mmol/L Chloride (98-107) mmol/L Carbon Dioxide (22-30) mmol/L Anion Gap (5-15) MEQ/L BUN (7-17) mg/dL Creatinine (0.52-1.04) mg/dL Estimated GFR ML/MIN Glucose (74-106) mg/dL Calcium (8.4-10.2) mg/dL Magnesium (1.6-2.3) mg/dL 07/04/22 Range/Units 05:22 WBC (4.0-10.5) x10^3/uL RBC (4.1-5.4) x10^6/uL Hgb (12.0-16.0) g/dL Hct (35-47) % MCV (78-100) fL MCH (26-32) pg MCHC (32-36) g/dL RDW (11.5-14.0) % Plt Count (150-450) x10^3/uL MPV (7.5-11.0) fL Gran % (36.0-66.0) % Immature Gran % (Auto) (0.00-0.4) % Nucleat RBC Rel Count (0.00-0.1) % Eos # (Auto) (0-0.5) x10^3/uL Immature Gran # (Auto) (0.00-0.03) x10^3u/L Absolute Lymphs (auto) (1.0-4.6) x10^3/uL Absolute Monos (auto) (0.0-1.3) x10^3/uL Absolute Nucleated RBC (0.00-0.01) x10^3u/L Lymphocytes % (24.0-44.0) % Monocytes % (0.0-12.0) % Eosinophils % (0.00-5.0) % Basophils % (0.0-0.4) % Absolute Granulocytes (1.4-6.9) x10^3/uL Basophils # (0-0.4) x10^3/uL Sodium 137 (137-145) mmol/L Potassium 3.5 (3.5-5.1) mmol/L Chloride 106 (98-107) mmol/L Carbon Dioxide 28 (22-30) mmol/L Anion Gap 6.8 (5-15) MEQ/L BUN 20 H (7-17) mg/dL Creatinine 1.47 H (0.52-1.04) mg/dL Estimated GFR 37.0 ML/MIN Glucose 99 (74-106) mg/dL Calcium 9.9 (8.4-10.2) mg/dL Magnesium 2.0 (1.6-2.3) mg/dL Micro Results-Entire Visit: Microbiology 06/30/22 13:41 Urine Culture - Final Catherized Citrobacter Freundii - Procedures and Test Procedures and Tests throughout Hospitalization: Therapy Orders & Screens 06/30/22 20:00 Respiratory Therapy Assessment DAILY Comment: Diagnosis: Acute UTI, confusion, ground-level fall, uncontrolled hypertension Discharge Exam General Appearance: no apparent distress Neurologic Exam: alert (not oriented to place or time) Neck Exam: normal inspection Respiratory Exam: normal breath sounds Cardiovascular Exam: bradycardia (regular) Gastrointestinal/Abdomen Exam: soft (nontender) Extremity Exam: normal inspection Final Diagnosis/Problem List - Final Discharge Diagnosis/Problem (1) Confusion Current Visit: Yes Status: Resolved Code(s): R41.0 - DISORIENTATION, UNSPECIFIED (2) Acute UTI Current Visit: Yes Status: Resolved Assessment & Plan: treated on Rocephin x 5 doses IV Code(s): N39.0 - URINARY TRACT INFECTION, SITE NOT SPECIFIED (3) Ground-level fall Current Visit: Yes Status: Resolved Code(s): W18.30XA - FALL ON SAME LEVEL, UNSPECIFIED, INITIAL ENCOUNTER (4) Uncontrolled hypertension Current Visit: Yes Status: Resolved Assessment & Plan: Hydralazine was added Code(s): I10 - ESSENTIAL (PRIMARY) HYPERTENSION (5) Bradycardia Current Visit: Yes Status: Acute Assessment & Plan: monitor - was given subs Rx Metoprolol -will be back on Bisoprolol on discharge Code(s): R00.1 - BRADYCARDIA, UNSPECIFIED - Discharge Disposition: DC TO ANY "OTHER" PENITENTIARY Condition: Stable Prescriptions: New HydrALAzine HCL 25 MG TAB [Apresoline 25 MG TABLET] 25 mg PO BID #60 t ablet Continue Bisoprolol/Hydrochlorothiazide [Bisoprolol-Hctz 5-6.25 mg Tab] 1 each PO DAILY No Action PARoxetine HCL [Paxil] 30 mg PO DAILY Torsemide 10 mg PO DAILY Thiamine HCl 100 mg [Vitamin B-1 100 mg] 100 mg PO DAILY Sumatriptan Succinate [Imitrex] 25 mg PO DAILY PRN PRN PRN Reason: Headache Famotidine [Pepcid AC] 10 mg PO DAILY Mirtazapine 30 mg [Remeron 30 mg] 30 mg PO HS Magnesium Hydroxide 30 ml [Milk of Magnesia 30 ml] 30 ml PO DAILY PRN PRN PRN Reason: Constipation Memantine HCl 5 mg [Namenda 5 MG] 5 mg PO BID Sodium Phosphate,[place]-Dibasic [Fleet Enema] 133 ml RC DAILY PRN PRN PRN Reason: Constipation Donepezil HCl 10 mg [Aricept 10 MG] 10 mg PO HS Chlordiazepoxide HCl 10 mg [Librium 10 MG] 20 mg PO HS Chlordiazepoxide HCl 10 mg [Librium 10 MG] 10 mg PO DAILY Bisacodyl 10 mg [Dulcolax 10 MG SUPP] 10 mg RC DAILY PRN PRN PRN Reason: Constipation Atorvastatin Calcium 10 mg PO HS Acetaminophen 500 mg [Tylenol Extra Strength 500 mg] 500 mg PO BID Cran/Vitc/Mannose/Fos/Bromeln [Uti-Stat Liquid] 30 ml PO TID
--- NOTE | 2022-07-04 13:20 | PCM.DCORD ---
- Discharge Disposition: DC TO ANY "OTHER" LONG TERM Condition: Stable Prescriptions: New HydrALAzine HCL 25 MG TAB [Apresoline 25 MG TABLET] 25 mg PO BID #60 tablet Continue Bisoprolol/Hydrochlorothiazide [Bisoprolol-Hctz 5-6.25 mg Tab] 1 each PO DAILY No Action PARoxetine HCL [Paxil] 30 mg PO DAILY Torsemide 10 mg PO DAILY Thiamine HCl 100 mg [Vitamin B-1 100 mg] 100 mg PO DAILY Sumatriptan Succinate [Imitrex] 25 mg PO DAILY PRN PRN PRN Reason: Headache Famotidine [Pepcid AC] 10 mg PO DAILY Mirtazapine 30 mg [Remeron 30 mg] 30 mg PO HS Magnesium Hydroxide 30 ml [Milk of Magnesia 30 ml] 30 ml PO DAILY PRN PRN PRN Reason: Constipation Memantine HCl 5 mg [Namenda 5 MG] 5 mg PO BID Sodium Phosphate,[place]-Dibasic [Fleet Enema] 133 ml RC DAILY PRN PRN PRN Reason: Constipation Donepezil HCl 10 mg [Aricept 10 MG] 10 mg PO HS Chlordiazepoxide HCl 10 mg [Librium 10 MG] 20 mg PO HS Chlordiazepoxide HCl 10 mg [Librium 10 MG] 10 mg PO DAILY Bisacodyl 10 mg [Dulcolax 10 MG SUPP] 10 mg RC DAILY PRN PRN PRN Reason: Constipation Atorvastatin Calcium 10 mg PO HS Acetaminophen 500 mg [Tylenol Extra Strength 500 mg] 500 mg PO BID Cran/Vitc/Mannose/Fos/Bromeln [Uti-Stat Liquid] 30 ml PO TID Follow up with: PEDRO LUQUE MD [Primary Care Provider] -
== END 2022-07-04 16:00 ==
LOC: ED 12:49 → MED SURG 20:29
PROVIDERS: ADMIT Family Medicine; ATTEND General Practice
DX: R41.0 Disorientation, unspecified (principal); N39.0 Urinary tract infection, site not specified; W18.30XA Fall on same level, unspecified, initial encounter; I10 Essential (primary) hypertension; R00.1 Bradycardia, unspecified; F03.90 Unspecified dementia, unspecified severity, without behavioral disturbance, psychotic disturbance, mood disturbance, and anxiety; D64.9 Anemia, unspecified; E87.6 Hypokalemia; Z79.899 Other long term (current) drug therapy; Z20.828 Contact with and (suspected) exposure to other viral communicable diseases
CPT/HCPCS: 0241U; 36000; 36415; 70450; 71045; 72125; 73502; 80048; 80053; 81001; 82550; 83690; 83735; 84132; 85025; 87077; 87086; 87186; 96360; 96365; 96374; 99285; P9612; 96375; J0360; J0696; J2270; J3480; A9270-GY

== ENCOUNTER 2022-09-15 12:58 | Observation (INO) | payer MEDICARE, OTHER ==
--- NOTE | 2022-09-15 13:15 | XRAY ---
Indication: Left-sided weakness. Stroke. Multiple contiguous images obtained through the head without contrast. Comparison: June 30, 2022 Again age-appropriate global atrophy, moderate/advanced periventricular degenerative micro-ischemia bilaterally, and remote lacunars infarct right basal ganglia/right internal capsule. No acute intracranial hemorrhage, abnormal extra-axial fluid collection, or mass effect. Fourth ventricle is midline without hydrocephalus. Bony calvarium intact. Visualized paranasal sinuses and mastoid air cells are clear. Impression: Stable nonacute senile brain with remote lacunar infarcts right basal ganglia/right internal capsule.
[2022-09-15 13:22] LABS: Absolute Neutrophil Ct (ANC) 4.84 x10^3/uL (1.4-6.9); BASOPHIL % 1.1 % (0.0-0.4); Basophil (Absolute #) 0.09 x10^3/uL (0-0.4); Eosinophil (Absolute #) 0.32 x10^3/uL (0-0.5); Hematocrit 43.9 % (35-47); Hemoglobin 13.7 g/dL (12.0-16.0); IMMATURE GRAN # 0.02 x10^3u/L (0.00-0.03); IMMATURE GRAN % 0.3 % (0.00-0.4); Lymphocyte (Absolute #) 1.97 x10^3/uL (1.0-4.6); Lymphocytes % 24.6 % (24.0-44.0); Mean Corpuscular Hemoglobin 29.7 pg (26-32); Mean Corpuscular Hgb Concent. 31.2 g/dL (32-36); Monocyte (Absolute #) 0.76 x10^3/uL (0.0-1.3); Monocytes % 9.5 % (0.0-12.0); Neutrophil % 60.5 % (36.0-66.0); Platelet Count 184 x10^3/uL (150-450); Red Blood Count 4.62 x10^6/uL (4.1-5.4); Red Cell Distribution Width 13.8 % (11.5-14.0)
[2022-09-15 13:39] LABS: ALBUMIN 3.6 g/dL (3.5-5.0); ANION GAP 10.8 MEQ/L (5-15); BILIRUBIN,TOTAL 0.4 mg/dL (0.2-1.3); Calcium 9.4 mg/dL (8.4-10.2); Creatinine 1 1.64 mg/dL (0.52-1.04); EST GLOMERULAR FILTRATION RATE 32.6 ML/MIN; Potassium 3.4 mmol/L (3.5-5.1); Total Protein 6.5 g/dL (6.3-8.2)
--- NOTE | 2022-09-15 13:54 | ERPHSYRPT ---
- History of Present Illness Time Seen by Provider: 09/15/22 13:52 Source: patient Exam Limitations: no limitations Physician History: Patient is a 71-year-old female who presents to our ED via EMS for evaluation of possible stroke. [facility] reports that patient was observed drooling. She was staring off into space. Speech was slurred. Right upper and lower extremity were flaccid. She was having difficulty swallowing. However upon arrival symptoms had significantly improved. No trauma. No fever. No nausea vomiting or diaphoresis. Symptoms are mild to moderate in intensity. Patient denies history of the same. She voices no other complaints or concerns at this time. Patient has a baseline level of dementia. However patient is conversant Portions of this note were created with voice recognition technology. There may be grammatical, spelling, punctuation or sound alike errors Timing/Duration: today Severity: moderate Modifying Factors: Improves With: nothing Associated Symptoms: denies symptoms Allergies/Adverse Reactions: venom-honey bee [bee venom (honey bee)] Allergy (Severe, Verified 06/30/22 13:08) Swelling of Tongue and Lips celecoxib [From Celebrex] Allergy (Verified 06/30/22 13:08) Penicillins Allergy (Verified 06/30/22 13:08) stay fresh Allergy (Severe, Uncoded 06/30/22 13:08) Swelling of Tongue and Lips produce wash Home Medications: Bisoprolol/Hydrochlorothiazide [Bisoprolol-Hctz 5-6.25 mg Tab] 1 each PO DAILY 0 02/19/15 [History] PARoxetine HCL [Paxil] 20 mg PO DAILY 02/19/15 [History] Acetaminophen 500 mg [Tylenol Extra Strength 500 mg] 500 mg PO BID 06/30/22 [History] Atorvastatin Calcium 10 mg PO HS 06/30/22 [History] Bisacodyl 10 mg [Dulcolax 10 MG SUPP] 10 mg RC DAILY PRN PRN 06/30/22 [History] Chlordiazepoxide HCl 10 mg [Librium 10 MG] 10 mg PO DAILY 06/30/22 [History] Chlordiazepoxide HCl 10 mg [Librium 10 MG] 20 mg PO HS 06/30/22 [History] Cran/Vitc/Mannose/Fos/Bromeln [Uti-Stat Liquid] 30 ml PO TID 06/30/22 [History] Donepezil HCl 10 mg [Aricept 10 MG] 10 mg PO HS 06/30/22 [History] Famotidine [Pepcid AC] 10 mg PO DAILY 06/30/22 [History] Magnesium Hydroxide 30 ml [Milk of Magnesia 30 ml] 30 ml PO DAILY PRN PRN 06/30/22 [History] Memantine HCl 5 mg [Namenda 5 MG] 5 mg PO BID 06/30/22 [History] Mirtazapine 30 mg [Remeron 30 mg] 30 mg PO HS 06/30/22 [History] Sumatriptan Succinate [Imitrex] 25 mg PO DAILY PRN PRN 06/30/22 [History] Thiamine HCl 100 mg [Vitamin B-1 100 mg] 100 mg PO DAILY 06/30/22 [History] Torsemide 10 mg PO DAILY 06/30/22 [History] Hx Tetanus, Diphtheria Vaccination/Date Given: Yes Hx Influenza Vaccination/Date Given: Yes Hx Pneumococcal Vaccination/Date Given: Yes Travel Risk - Vaccine Status Have you recieved a Covid-19 vaccination: No (UNKNOWN) - Vaccination Dates Comment: [facility] RECORD DOES NOT HAVE UPDATED VACCINE INFO. - Review of Systems Constitutional: No Symptoms, No Fever, No Chills Eyes: No Symptoms Ears, Nose, & Throat: No Symptoms Respiratory: No Symptoms, No Cough, No Dyspnea Cardiac: No Symptoms, No Chest Pain, No Edema, No Syncope Abdominal/Gastrointestinal: No Symptoms, No Abdominal Pain, No Nausea, No Vomiting, No Diarrhea Genitourinary Symptoms: No Symptoms, No Dysuria Musculoskeletal: No Symptoms, No Back Pain, No Neck Pain Skin: No Symptoms, No Rash Neurological: No Symptoms, No Dizziness, No Focal Weakness, No Sensory Changes Psychological: No Symptoms Endocrine: No Symptoms Hematologic/Lymphatic: No Symptoms Immunological/Allergic: No Symptoms All Other Systems: Reviewed and Negative - Past Medical History Pertinent Past Medical History: Yes Neurological History: Dementia ENT History: No Pertinent History Cardiac History: Arrhythmia, Deep Vein Thrombosis, High Cholesterol, Hyperte nsion Respiratory History: No Pertinent History Endocrine Medical History: No Pertinent History Musculoskeletal History: Arthritis, Fractures, Osteoarthritis, Rheumatoid Arthritis GI Medical History: GI Bleed, Hemorrhoids, Hernia History: No Pertinent History Psycho-Social History: Anxiety, Depression, Panic Disorder Female Reproductive Disorders: Menstrual Problems, Other Other Medical History: rt wrist fx,benign breast tumors, anemia, hyperlipidemia - Past Surgical History Past Surgical History: Yes Neuro Surgical History: No Pertinent History Cardiac: No Pertinent History Respiratory: No Pertinent History Gastrointestinal: No Pertinent History Genitourinary: No Pertinent History Musculoskeletal: No Pertinent History Female Surgical History: Tubal Ligation, Other Other Surgical History: breast surgery tumors removed multiple times - Social History Smoking Status: Former smoker How long have you smoked: 50 years Exposure to second hand smoke: No Drug Use: none Patient Lives Alone: No - Nursing Vital Signs Nursing Vital Signs: Initial Vital Signs Temperature 96.9 F 09/15/22 13:05 Pulse Rate 41 L 09/15/22 13:05 Blood Pressure 168/63 09/15/22 13:05 O2 Sat by Pulse Oximetry 96 09/15/22 13:05 Pain Scale Pain Intensity 0 - Physical Exam General Appearance: no apparent distress, alert Eye Exam: PERRL/EOMI, eyes nml inspection Ears, Nose, Throat Exam: normal ENT inspection, moist mucous membranes Neck Exam: normal inspection, non-tender, supple, full range of motion Respiratory Exam: normal breath sounds, lungs clear, airway intact, No respiratory distress Cardiovascular Exam: regular rate/rhythm, normal heart sounds, normal peripheral pulses Gastrointestinal/Abdomen Exam: soft, normal bowel sounds, No tenderness, No mass Back Exam: normal inspection, normal range of motion, No CVA tenderness, No vertebral tenderness Extremity Exam: normal inspection, normal range of motion, pelvis stable, other Neurologic Exam: alert, oriented x 3, cooperative, normal mood/affect, sensation nml, No motor deficits Skin Exam: normal color, warm, dry, No rash Lymphatic Exam: No adenopathy SpO2 Interpretation: normal SpO2: 96 O2 Delivery: Room Air - Course Nursing assessment & vital signs reviewed: Yes - CT Exams Head CT Interpretation: Tele-radiologist Report (No acute intracranial pathology old clear infarct) Ordered Tests: Active Orders 24 hr Category Date Time Status Radiologic Therapist STAT Care 09/15/22 13:11 Active EKG-ER Only STAT Care 09/15/22 13:10 Active Eugene [Catheter-Agency Eugene] STAT Care 09/15/22 15:59 Active IV Insertion STAT Care 09/15/22 13:10 Active Pulse Oximetry (ED) STAT Care 09/15/22 13:10 Active HEAD WITHOUT CONTRAST [CT] Stat Exams 09/15/22 13:01 Completed CBC W DIFF Stat Lab 09/15/22 13:18 Completed CMP Stat Lab 09/15/22 13:18 Completed CULTURE,URINE Stat Lab 09/15/22 15:58 Received TROPONIN Q4H Lab 09/15/22 13:18 Completed TROPONIN Q4H Lab 09/15/22 17:15 Ordered TROPONIN Q4H Lab 09/15/22 21:15 Ordered UA W/RFX UR CULTURE Stat Lab 09/15/22 15:58 Completed Transfer Order Routine Transfer 09/15/22 Ordered Medication Summary Generic Name Dose Route Start Last Admin Trade Name Eddieq PRN Reason Stop Dose Admin Sodium Chloride 1,000 mls @ 75 mls/hr 09/15/22 17:15 Sodium Chloride 0.9% 1000 Ml IV 10/15/22 17:14 .[id number] Ceftriaxone Sodium/Dextrose 1 g in 50 mls @ 100 mls/hr 09/15/22 17:13 Rocephin 1 Gm-D5w 50 Ml Bag IV 09/15/22 17:42 STAT STA Discontinued Medications Generic Name Dose Route Start Last Admin Trade Name Lexis PRN Reason Stop Dose Admin Aspirin 324 mg 09/15/22 17:06 Aspirin 81 Mg Tab.Chew PO 09/15/22 17:07 STAT ONE Trimethoprim/Sulfamethoxazole 1 tab 09/15/22 14:59 09/15/22 15:47 Smz/Tmp Ds Tablet 1 Tablet PO 09/15/22 15:00 Not Given STAT STA Lab/Rad Data: Laboratory Result Diagrams 09/15/22 13:18 09/15/22 13:18 Laboratory Results 09/15/22 09/15/22 09/15/22 Range/Units 16:15 15:58 13:18 WBC (4.0-10.5) x10^3/uL RBC (4.1-5.4) x10^6/uL Hgb (12.0-16.0) g/dL Hct (35-47) % MCV (78-100) fL MCH (26-32) pg MCHC (32-36) g/dL RDW (11.5-14.0) % Plt Count (150-450) x10^3/uL MPV (7.5-11.0) fL Gran % (36.0-66.0) % Immature Gran % (Auto) (0.00-0.4) % Nucleat RBC Rel Count (0.00-0.1) % Eos # (Auto) (0-0.5) x10^3/uL Immature Gran # (Auto) (0.00-0.03) x10^3u/L Absolute Lymphs (auto) (1.0-4.6) x10^3/uL Absolute Monos (auto) (0.0-1.3) x10^3/uL Absolute Nucleated RBC (0.00-0.01) x10^3u/L Lymphocytes % (24.0-44.0) % Monocytes % (0.0-12.0) % Eosinophils % (0.00-5.0) % Basophils % (0.0-0.4) % Absolute Granulocytes (1.4-6.9) x10^3/uL Basophils # (0-0.4) x10^3/uL Sodium (137-145) mmol/L Potassium (3.5-5.1) mmol/L Chloride (98-107) mmol/L Carbon Dioxide (22-30) mmol/L Anion Gap (5-15) MEQ/L BUN (7-17) mg/dL Creatinine (0.52-1.04) mg/dL Estimated GFR ML/MIN Glucose (74-106) mg/dL Calcium (8.4-10.2) mg/dL Total Bilirubin (0.2-1.3) mg/dL AST (14-36) U/L ALT (0-35) U/L Alkaline Phosphatase (38-126) U/L Troponin I 0.016 (0.000-0.034) ng/mL Serum Total Protein (6.3-8.2) g/dL Albumin (3.5-5.0) g/dL Urine Color Yellow (Yellow) Urine Appearance Clear (Clear) Urine pH 5.5 (4.6-8.0) Ur Specific [place] 1.010 (1.005-1.030) Urine Protein Negative (Negative) Urine Glucose (UA) Negative (Negative) mg/dL Urine Ketones Negative (Negative) Urine Blood Negative (Negative) Urine Nitrite Negative (Negative) Urine Bilirubin Negative (Negative) Urine Urobilinogen 0.2 (0.2) mg/dL Ur Leukocyte Esterase Large A (Negative) U Hyaline Cast (Auto) 3-5 A (0-2) /LPF Urine Microscopic RBC 0-2 (0-5) /HPF Urine Microscopic WBC >100 A (0-5) /HPF Ur Epithelial Cells None Seen (None Seen) /HPF Urine Bacteria Moderate A (None Seen) /HPF Urine Culture Reflexed YES (NO) Influenza Type A Ag NEGATIVE (NEGATIVE) Influenza Type B Ag NEGATIVE (NEGATIVE) RSV (PCR) NEGATIVE (NEGATIVE) SARS-CoV-2 (PCR) NEGATIVE (NEGATIVE) 09/15/22 09/15/22 Range/Units 13:18 13:18 WBC 8.0 (4.0-10.5) x10^3/uL RBC 4.62 (4.1-5.4) x10^6/uL Hgb 13.7 (12.0-16.0) g/dL Hct 43.9 (35-47) % MCV 95.0 (78-100) fL MCH 29.7 (26-32) pg MCHC 31.2 L (32-36) g/dL RDW 13.8 (11.5-14.0) % Plt Count 184 (150-450) x10^3/uL MPV 12.0 H (7.5-11.0) fL Gran % 60.5 (36.0-66.0) % Immature Gran % (Auto) 0.3 (0.00-0.4) % Nucleat RBC Rel Count 0.0 (0.00-0.1) % Eos # (Auto) 0.32 (0-0.5) x10^3/uL Immature Gran # (Auto) 0.02 (0.00-0.03) x10^3u/L Absolute Lymphs (auto) 1.97 (1.0-4.6) x10^3/uL Absolute Monos (auto) 0.76 (0.0-1.3) x10^3/uL Absolute Nucleated RBC 0.00 (0.00-0.01) x10^3u/L Lymphocytes % 24.6 (24.0-44.0) % Monocytes % 9.5 (0.0-12.0) % Eosinophils % 4.0 (0.00-5.0) % Basophils % 1.1 (0.0-0.4) % Absolute Granulocytes 4.84 (1.4-6.9) x10^3/uL Basophils # 0.09 (0-0.4) x10^3/uL Sodium 142 (137-145) mmol/L Potassium 3.4 L (3.5-5.1) mmol/L Chloride 101 (98-107) mmol/L Carbon Dioxide 34 H (22-30) mmol/L Anion Gap 10.8 (5-15) MEQ/L BUN 22 H (7-17) mg/dL Creatinine 1.64 H (0.52-1.04) mg/dL Estimated GFR 32.6 ML/MIN Glucose 131 H (74-106) mg/dL Calcium 9.4 (8.4-10.2) mg/dL Total Bilirubin 0.40 (0.2-1.3) mg/dL AST 20 (14-36) U/L ALT 16 (0-35) U/L Alkaline Phosphatase 74 (38-126) U/L Troponin I (0.000-0.034) ng/mL Serum Total Protein 6.5 (6.3-8.2) g/dL Albumin 3.6 (3.5-5.0) g/dL Urine Color (Yellow) Urine Appearance (Clear) Urine pH (4.6-8.0) Ur Specific [place] (1.005-1.030) Urine Protein (Negative) Urine Glucose (UA) (Negative) mg/dL Urine Ketones (Negative) Urine Blood (Negative) Urine Nitrite (Negative) Urine Bilirubin (Negative) Urine Urobilinogen (0.2) mg/dL Ur Leukocyte Esterase (Negative) U Hyaline Cast (Auto) (0-2) /LPF Urine Microscopic RBC (0-5) /HPF Urine Microscopic WBC (0-5) /HPF Ur Epithelial Cells (None Seen) /HPF Urine Bacteria (None Seen) /HPF Urine Culture Reflexed (NO) Influenza Type A Ag (NEGATIVE) Influenza Type B Ag (NEGATIVE) RSV (PCR) (NEGATIVE) SARS-CoV-2 (PCR) (NEGATIVE) - Progress Progress: improved Progress Note: Case discussed with Dr. Morin who accepts admission to observation. Plan of care discussed with patient. They agree to admission [facility] for further evaluation and treatment. Portions of this note were created with voice recognition technology. There may be grammatical, spelling, punctuation or sound alike errors 09/15/22 17:05 Patient is a 71-year-old female [facility] of possible stroke. Patient had a period of unresponsiveness drooling extremities placidity and confusion. Upon arrival to our ED symptoms significantly improved. CT head shows no acute intracranial pathology. Teleneurology advised against tPA. Patient reassessed patient continues to improve. Work-up reveals slight hypokalemia. Chronic renal suffic iency and a urinary tract infection. The dose of Rocephin IV administered. Patient had some urinary incontinence. A Eugene catheter was placed. EKG was read and interpreted by Dr. Borrego. Bradycardia observed at a rate of 45. Left bundle branch block. No ischemic changes observed. CBC, CMP ordered. COVID test negative. Urinalysis reveals a urinary tract infection. Urine cultures obtained. Troponin negative. Case discussed with Dr. Morin accepts admission to observation. Complexity of problem addressed is moderate, acute complicated with weakness altered mental status. Complexity of data reviewed and analyzed is moderate. Dr. Borrego independently reviewed EKG. Test ordered. Test reviewed. Patient is a poor historian however daughter at bedside provided HPI. EMS also provided HPI upon arrival. Discussion of patient management discussed with Dr. Morin excepts admission to observation. Risk of complications and or risk morbidity/mortality patient management is high. Patient will be hospitalized for further evaluation of suspected stroke/TIA/weakness. Vital stable. IV fluids administered. Aspirin administered. Patient voices no other complaints or concerns at this time. Portions of this note were created with voice recognition technology. There may be grammatical, spelling, punctuation or sound alike errors 09/15/22 17:20 Discussed with : Vincent Will see patient in: hospital (observation) Counseled pt/family regarding: lab results, diagnosis, rad results - Departure Departure Disposition: Home Clinical Impression: UTI (urinary tract infection), Weakness, Hypokalemia, Chronic renal insufficiency Condition: Stable Critical Care Time: No Referrals: ENVIVE,ENVIVE [Primary Care Provider] - Follow up/PCP as directed Additional Instructions: Discharge/Care Plan MITCHELL KING was seen on 09/15/22 in the Emergency Room. The patient was counseled regarding Diagnosis,Lab results, Imaging studies, need for follow up and when to return to the Emergency Room. Prescriptions given: Discharge Note I have spoken with the patient and/or caregivers. I have explained the patient's condition, diagnosis and treatment plan based on the information available to me at this time. I have answered the patient's and/or caregiver's questions and addressed any concerns. The patient and/or caregivers have as good understanding of the patient's diagnosis, condition and treatment plan as can be expected at this point. The vital signs have been stable. The patient's condition is stable and appropriate for discharge from the emergency department. The patient will pursue further outpatient evaluation with the primary care physician or other designated or consulting physician as outlined in the discharge instructions. The patient and/or caregivers are agreeable to this plan of care and follow-up instructions have been explained in detail. The patient and/or caregivers have received these instruction. The patient/and or caregivers are aware that any significant change in condition or worsening of symptoms should prompt an immediate return to this or the closest emergency department or call 911. Prescriptions: Smz/Tmp Ds Tablet [Bactrim Ds Tablet] 1 udtab PO BID #14 tablet Outpatient Orders: Ortho Referral Time Frame: 1 Day, Facility: [facility], Location: [facility]
[2022-09-15] MEDS ORDERED: BACTRIM DS TABLET PO STA (14:59)
[2022-09-15 16:11] LABS: Appearance Clear (Clear); Bacteria Moderate /HPF (None Seen); Bilirubin Negative (Negative); Blood Negative (Negative); Epithelial Cells None Seen /HPF (None Seen); Glucose, Urine Negative (Negative); Ketones Negative (Negative); Leukocyte Esterase Large (Negative); Nitrite Negative (Negative); Ph 5.5 (4.6-8.0); Protein,Urine Dip Negative (Negative); RBC 0-2 /HPF (0-5); Urobilinogen 0.2 mg/dL (0.2); WBC >100 /HPF (0-5)
[2022-09-15 16:13] LABS: ADD URINE CULTURE? YES (NO)
[2022-09-15 16:58] LABS: INFLUENZA A NEGATIVE (NEGATIVE); INFLUENZA B NEGATIVE (NEGATIVE); RESPIRATORY SYNCTIAL VIRUS NEGATIVE (NEGATIVE); SARS-CoV-2 Xpert Express NEGATIVE (NEGATIVE)
[2022-09-15] MEDS ORDERED: BABY ASPIRIN 81 MG CHEW PO ONE (17:06)
[2022-09-15] MEDS ORDERED: ROCEPHIN 1 Gm-D5w 50 ml Bag** 1 G/50 ML IVPB IV STA (17:13)
[2022-09-15] MEDS ORDERED: Sodium Chloride 0.9% 1000 ML 1,000 ML IV SCH (17:15)
[2022-09-15] MEDS ORDERED: Sodium Chloride 0.9% 1000 ML 1,000 ML ONE (17:19)
[2022-09-15] MEDS ORDERED: ROCEPHIN 1 Gm-D5w 50 ml Bag** 1 G/50 ML IVPB IV ONE (17:19)
[2022-09-15] MEDS ORDERED: BABY ASPIRIN 81 MG CHEW ONE (17:19)
[2022-09-15] MEDS ORDERED: MAALOX ES 30 ML UNIT DOSE PO PRN (17:44)
[2022-09-15] MEDS ORDERED: TYLENOL 325 MG PO PRN (17:44)
[2022-09-15] MEDS ORDERED: MILK OF MAGNESIA 30 ML PO PRN (17:44)
[2022-09-15] MEDS ORDERED: Senokot-S Tablet PO PRN (17:44)
[2022-09-15] MEDS ORDERED: Zofran 4 MG/2 ML VIAL IV PRN (17:44)
[2022-09-15] MEDS ORDERED: POTASSIUM CHLORIDE 20 mEq IN WATER 100ML 20 MEQ/100 ML BAG IV ONE (17:46)
[2022-09-15] MEDS ORDERED: APRESOLINE 20 MG/ML INJ IV PRN (20:04)
[2022-09-15] MEDS ORDERED: Dulcolax 10 MG SUPP PR PRN (20:13)
[2022-09-15] MEDS ORDERED: BENADRYL 25 MG CAPSULE PO PRN (20:14)
[2022-09-15] MEDS ORDERED: IMODIUM 2 MG PO PRN (20:18)
[2022-09-15] MEDS: Apresoline 25 MG TABLET PO SCH (21:16)
[2022-09-15] MEDS: ULTRAM 50 MG PO SCH (21:16)
[2022-09-15] MEDS: Namenda 5 MG PO SCH (21:17)
[2022-09-15] MEDS ORDERED: Aricept 10 MG PO SCH (22:00)
[2022-09-15] MEDS ORDERED: REMERON 30 MG PO SCH (22:00)
[2022-09-15] MEDS ORDERED: ZOCOR 20MG PO SCH (22:00)
[2022-09-16 05:52] LABS: Risk Ratio 3.6
[2022-09-16] MEDS ORDERED: IMODIUM 2 MG PO PRN ×2 (07:19→07:30)
[2022-09-16] MEDS ORDERED: NON-FORMULARY ITEM (Sodium Phosphate,Mono-Dibasic [Fleet Enema] 133 ML Enema) RC PRN (07:19)
[2022-09-16] MEDS ORDERED: SUMATRIPTAN SUCCINATE 25 MG PO PRN (07:19)
[2022-09-16] MEDS ORDERED: Dulcolax 10 MG SUPP RC PRN (07:19)
[2022-09-16] MEDS ORDERED: MILK OF MAGNESIA 30 ML PO PRN (07:19)
[2022-09-16] MEDS ORDERED: MEDICATION INTERVENTION MC SCH ×4 (07:45)
[2022-09-16 08:14] LABS: Absolute Neutrophil Ct (ANC) 5.06 x10^3/uL (1.4-6.9); BASOPHIL % 1.1 % (0.0-0.4); Basophil (Absolute #) 0.09 x10^3/uL (0-0.4); Eosinophil % 5.8 % (0.00-5.0); Eosinophil (Absolute #) 0.47 x10^3/uL (0-0.5); Hemoglobin 12.5 g/dL (12.0-16.0); IMMATURE GRAN # 0.01 x10^3u/L (0.00-0.03); IMMATURE GRAN % 0.1 % (0.00-0.4); Lymphocyte (Absolute #) 1.81 x10^3/uL (1.0-4.6); Lymphocytes % 22.2 % (24.0-44.0); Mean Cell Volume 97.4 fL (78-100); Mean Corpuscular Hemoglobin 29.7 pg (26-32); Mean Corpuscular Hgb Concent. 30.5 g/dL (32-36); Mean Platelet Volume 11.9 fL (7.5-11.0); Monocyte (Absolute #) 0.72 x10^3/uL (0.0-1.3); Monocytes % 8.8 % (0.0-12.0); Platelet Count 158 x10^3/uL (150-450); Red Blood Count 4.21 x10^6/uL (4.1-5.4); Red Cell Distribution Width 13.7 % (11.5-14.0); White Blood Count 8.2 x10^3/uL (4.0-10.5)
[2022-09-16 08:25] LABS: ALBUMIN 3.1 g/dL (3.5-5.0); ANION GAP 9.8 MEQ/L (5-15); BILIRUBIN,TOTAL 0.3 mg/dL (0.2-1.3); Calcium 8.8 mg/dL (8.4-10.2); Creatinine 1 1.34 mg/dL (0.52-1.04); EST GLOMERULAR FILTRATION RATE 41.2 ML/MIN; Potassium 3.8 mmol/L (3.5-5.1); Total Protein 5.9 g/dL (6.3-8.2)
[2022-09-16] MEDS: ULTRAM 50 MG PO SCH (08:29)
[2022-09-16] MEDS: Namenda 5 MG PO SCH (08:29)
[2022-09-16] MEDS: Apresoline 25 MG TABLET PO SCH (08:29)
[2022-09-16] MEDS ORDERED: [UNRECOGNIZED DRUG - OTHER] PO SCH (10:00)
[2022-09-16] MEDS ORDERED: Klor Con PO SCH (10:00)
[2022-09-16] MEDS ORDERED: ROCEPHIN 1 Gm-D5w 50 ml Bag** 1 G/50 ML IVPB IV SCH (10:00)
[2022-09-16] MEDS ORDERED: DEMADEX 20 MG PO SCH (10:00)
[2022-09-16] MEDS ORDERED: MANNOSE PO SCH (10:00)
[2022-09-16] MEDS ORDERED: FOS PO SCH (10:00)
[2022-09-16] MEDS ORDERED: Pepcid 20 MG PO SCH (10:00)
[2022-09-16] MEDS ORDERED: VITC PO SCH (10:00)
[2022-09-16] MEDS ORDERED: Paxil 20 MG PO SCH (10:00)
[2022-09-16] MEDS ORDERED: FAMOTIDINE 10 MG PO SCH (10:00)
[2022-09-16] MEDS ORDERED: NON-FORMULARY ITEM (Torsemide [Torsemide] 10 MG Tablet) PO SCH (10:00)
[2022-09-16] MEDS ORDERED: VITAMIN B-1 100 MG PO SCH (10:00)
[2022-09-16] MEDS ORDERED: BROMELN PO SCH (10:00)
[2022-09-16] MEDS ORDERED: Miralax Powder 17GM PACKET PO SCH (10:00)
[2022-09-16] MEDS ORDERED: CRAN PO SCH (10:00)
[2022-09-16 12:31] VITALS: BP 178/77; PULSE 50; O2SAT 98
--- NOTE | 2022-09-16 14:32 | XRAY ---
Indication: Stroke symptoms. Sagittal, coronal, and axial MRI brain performed without contrast using T1, T2, FLAIR, diffusion, and ADC sequences. Comparison: None Age-appropriate global atrophy, moderate/advanced periventricular degenerative micro-ischemia bilaterally, and remote lacunar infarcts right basal ganglia/bilateral cerebellum. Brainstem demonstrates additional mild degenerative micro-ischemia signal. No acute intracranial hemorrhage, abnormal extra-axial fluid collection, or mass effect. Diffusion images negative for restricted signal. Fourth ventricle is midline without hydrocephalus. 7/8 cranial nerve complex bilaterally symmetric. Normal flow void signal within the major intracerebral circulation. Normal appearing craniocervical junction and sella turcica. Visualized paranasal sinuses are clear. Impression: 1. Atrophy and degenerative micro-ischemia within normal limits for patient's age. 2. Remote lacunar infarcts right basal ganglia/bilateral cerebellum. 3. No acute intracranial abnormalities or evidence for evolving large vessel territorial stroke.
[2022-09-16] MEDS ORDERED: NON-FORMULARY ITEM (Atorvastatin Calcium [Atorvastatin Calcium] 10 MG Tablet) PO SCH (22:00)
[2022-09-16] MEDS ORDERED: Zocor 10MG PO SCH (22:00)
--- NOTE | 2022-10-02 23:59 | PCM.SSS ---
History of Present Illness - Chief Complaint Chief Complaint: Weakness, possible stroke Date: 09/16/22 History of Present Illness: Patient is a 71-year-old female who presents to our ED via EMS for evaluation of possible stroke. Patient is a resident at the [facility] reports that patient was observed drooling. She was staring off into space. Speech was slurred. Right upper and lower extremity were flaccid. She was having difficulty swallowing. However upon arrival symptoms had significantly improved. No trauma. No fever. No nausea vomiting or diaphoresis. Symptoms are mild to moderate in intensity. Patient denies history of the same. She voices no other complaints or concerns at this time. - Review of Systems Constitutional: No Fever, No Chills Eyes: No Symptoms Ears, Nose, & Throat: No Symptoms Respiratory: No Cough, No Short Of Breath Cardiac: No Chest Pain, No Edema, No Syncope Abdominal/Gastrointestinal: No Abdominal Pain, No Nausea, No Vomiting, No Diarrhea Genitourinary Symptoms: No Dysuria Musculoskeletal: No Back Pain, No Neck Pain Skin: No Rash Neurological: No Dizziness, No Focal Weakness, No Sensory Changes Psychological: No Symptoms Endocrine: No Symptoms Hematologic/Lymphatic: No Symptoms Immunological/Allergic: No Symptoms Medications & Allergies Home Medications: Home Medication List Bisoprolol/Hydrochlorothiazide [Bisoprolol-Hctz 5-6.25 mg Tab] 1 each PO DAILY 02/19/15 [History Confirmed 09/15/22] PARoxetine HCL [Paxil] 20 mg PO DAILY 02/19/15 [History Confirmed 09/15/22] Acetaminophen 500 mg [Tylenol Extra Strength 500 mg] 500 mg PO BID 06/30/22 [History Confirmed 09/15/22] Atorvastatin Calcium 10 mg PO HS 06/30/22 [History Confirmed 09/15/22] Bisacodyl 10 mg [Dulcolax 10 MG SUPP] 10 mg RC DAILY PRN PRN 06/30/22 [History Confirmed 09/15/22] Chlordiazepoxide HCl 10 mg [Librium 10 MG] 10 mg PO DAILY 06/30/22 [History Confirmed 09/15/22] Chlordiazepoxide HCl 10 mg [Librium 10 MG] 20 mg PO HS 06/30/22 [History Confirmed 09/15/22] Cran/Vitc/Mannose/Fos/Bromeln [Uti-Stat Liquid] 30 ml PO TID 06/30/22 [History Confirmed 09/15/22] Donepezil HCl 10 mg [Aricept 10 MG] 10 mg PO HS 06/30/22 [History Confirmed 09/15/22] Famotidine [Pepcid AC] 10 mg PO DAILY 06/30/22 [History Confirmed 09/15/22] Magnesium Hydroxide 30 ml [Milk of Magnesia 30 ml] 30 ml PO DAILY PRN PRN 06/30/22 [History Confirmed 09/15/22] Memantine HCl 5 mg [Namenda 5 MG] 5 mg PO BID 06/30/22 [History Confirmed 09/15/22] Mirtazapine 30 mg [Remeron 30 mg] 30 mg PO HS 06/30/22 [History Confirmed 09/15/22] Sumatriptan Succinate [Imitrex] 25 mg PO DAILY PRN PRN 06/30/22 [History Confirmed 09/15/22] Thiamine HCl 100 mg [Vitamin B-1 100 mg] 100 mg PO DAILY 06/30/22 [History Confirmed 09/15/22] Torsemide 10 mg PO DAILY 06/30/22 [History Confirmed 09/15/22] HydrALAzine HCL 25 MG TAB [Apresoline 25 MG TABLET] 25 mg PO BID #60 tablet 07/04/22 [Rx Confirmed 09/15/22] Acetaminophen 325 mg [Tylenol 325 mg] 650 mg PO Q4HPRN PRN 09/15/22 [History Confirmed 09/15/22] Diphenhydramine HCl 25 mg [Benadryl 25 mg Capsule] 25 mg PO Q6H PRN PRN 09/15/22 [History Confirmed 09/15/22] Loperamide HCl 2 mg [Imodium 2 mg] 2 mg PO Q8HPRN PRN 09/15/22 [History Confirmed 09/15/22] Polyethylene Glycol 3350 [Miralax] 17 gm PO DAILY 09/15/22 [History Confirmed 09/15/22] Potassium Chloride 10 meq PO DAILY 09/15/22 [History Confirmed 09/15/22] Sodium Phosphate,Yellow Medicine-Dibasic [Fleet Enema] 133 ml RC DAILY PRN PRN 09/15/22 [History Confirmed 09/15/22] Tramadol HCl 50 mg [Ultram 50 mg] 50 mg PO TID 09/15/22 [History Confirmed 09/15/22] Aspirin EC 81 mg [Ecotrin 81 mg] 81 mg PO DAILY #30 tablet 09/16/22 [Rx] Clopidogrel Bisulfate [PLAVIX Tablet] 75 mg PO DAILY #30 tablet 09/16/22 [Rx] Nitrofurantoin Macro 100 mg [Macrobid 100MG Capsule] 100 mg PO BID 10 Days #20 cap 09/16/22 [Rx] Allergies/Adverse Reactions: Allergies Allergy/AdvReac Type Severity Reaction Status Date / Time venom-honey bee Allergy Severe Swelling Verified 09/15/22 17:50 [bee venom (honey bee)] of Tongue and Lips celecoxib [From Celebrex] Allergy Verified 09/15/22 17:50 Penicillins Allergy Verified 09/15/22 17:50 stay fresh Allergy Severe Swelling Uncoded 09/15/22 17:50 of Tongue and Lips - Past Medical History Past Medical History: Yes Neurological History: Dementia ENT History: No Pertinent History Cardiac History: Arrhythmia, Deep Vein Thrombosis, High Cholesterol, Hypertens ion Respiratory History: No Pertinent History Endocrine Medical History: No Pertinent History Musculoskelatal History: Arthritis, Fractures, Osteoarthritis, Rheumatoid Arthritis GI Medical History: GI Bleed, Hemorrhoids, Hernia History: No Pertinent History Pyscho-Social History: Anxiety, Depression, Panic Disorder Reproductive Disorders: Menstrual Problems, Other Comment: rt wrist fx,benign breast tumors, anemia, hyperlipidemia - Female History Are you now?: No - Past Surgical History Past Surgical History: Yes Neuro Surgical History: No Pertinent History Cardiac History: No Pertinent History Respiratory Surgery: No Pertinent History GI Surgical History: No Pertinent History Genitourinary Surgical Hx: No Pertinent History Musculskeletal Surgical Hx: No Pertinent History Female Surgical History: Tubal Ligation, Other Other Surgical History: breast surgery tumors removed multiple times - Social History Smoking Status: Never smoker How long have you smoked: 50 years Exposure to second hand smoke: No Alcohol: None Drug Use: none - Physical Exam General Appearance: no apparent distress, alert Neurologic Exam: alert, cooperative, normal mood/affect, nml cerebellar function, nml station & gait, sensation nml, No motor deficits Eye Exam: PERRL/EOMI, eyes nml inspection Ears, Nose, Throat Exam: normal ENT inspection, TMs normal, pharynx normal, moist mucous membranes Neck Exam: normal inspection, non-tender, supple, full range of motion Respiratory Exam: normal breath sounds, lungs clear, No respiratory distress Cardiovascular Exam: regular rate/rhythm, normal heart sounds, normal peripheral pulses Gastrointestinal/Abdomen Exam: soft, normal bowel sounds, No tenderness, No mass Back Exam: normal inspection, normal range of motion, No CVA tenderness, No vertebral tenderness Extremity Exam: normal inspection, normal range of motion, pelvis stable Skin Exam: normal color, warm, dry, No rash Lymphatic Exam: No adenopathy Results - Labs Lab/Micro Results: Microbiology 09/15/22 15:58 Urine Culture - Final Clean Catch Midstream Morganella Morganii Ssp Kobe Assessment/Plan (1) Bradycardia Status: Acute Code(s): R00.1 - BRADYCARDIA, UNSPECIFIED (2) UTI (urinary tract infection) Status: Acute Code(s): N39.0 - URINARY TRACT INFECTION, SITE NOT SPECIFIED (3) Weakness Status: Acute Code(s): R53.1 - WEAKNESS (4) Dementia Status: Chronic Code(s): F03.90 - UNSP DEMENTIA, UNSP SEVERITY, WITHOUT BEH/PSYCH/MOOD/ANX Hospital Summary - Hospital Course Hospital Course: Pt. admitted, MRI was negative for CVA, UTI was treated with IV antibiotics, pt. remained at baseline and no other problems noted, family did not want further evaluation ant pt. was stable to d/[facility] for [facility] - Vitals & Intake/Output Vital Signs: Vital Signs Temperature 97.6 F 09/16/22 12:00 Pulse Rate 50 L 09/16/22 12:00 Respiratory Rate 16 09/16/22 12:00 Blood Pressure 178/77 09/16/22 12:00 O2 Sat by Pulse Oximetry 98 09/16/22 12:00 - Lab Result Diagrams: 09/16/22 08:07 09/16/22 08:07 Micro Results-Entire Visit: Microbiology 09/15/22 15:58 Urine Culture - Final Clean Catch Midstream Morganella Morganii Ssp [facility] - Procedures and Test Procedures and Tests throughout Hospitalization: Therapy Orders & Screens 09/15/22 17:44 EKG Q8HX2,QAMX3,PRN Comment: 09/15/22 21:15 EKG ROUTINE Comment: Diagnosis: Weakness, possible stroke 09/15/22 23:37 Oxygen Nasal Cannula 2 lpm Comment: Diagnosis: Weakness, possible stroke 09/16/22 05:00 EKG ROUTINE Comment: Diagnosis: Weakness, possible stroke 09/16/22 08:00 OT Screen per Nursing Assess ONCE Comment: Protocol Order Physician Instructions: Greater than 3 points order OT Admission Screening Reason For Exam: Triggered on Admission Diagnosis: Weakness, possible stroke Open Wound/Cellutlitis/Pressure Ulcers: No Acute Fx/ORIF/Change in wt bearing status: No Severe MUSCULOSKELETAL pain: No ADL Dysfunction: Yes Acute CVA w/Hemiparesis/Hemiplegia: No Decreased Functional Mobility/Strength: Yes: broken toes right foot Sprain/Strain: No Total Points: 4 PT Screen per Nursing Assess ONCE Comment: Protocol Order Physician Instructions: Greater than 3 points order PT Admission Screenin Reason For Exam: Triggered on Admission Diagnosis: Weakness, possible stroke Open Wound/Cellutlitis/Pressure Ulcers: No Acute Fx/ORIF/Change in wt bearing status: No Severe MUSCULOSKELETAL pain: No ADL Dysfunction: Yes Acute CVA w/Hemiparesis/Hemiplegia: No Decreased Functional Mobility/Strength: Yes: broken toes right foot Sprain/Strain: No Total Points: 4 ST Screen per Nursing Assess ONCE Comment: Protocol Order Physician Instructions: Greater than [address] Admission Screening Reason For Exam: Triggered on Admission Diagnosis: Weakness, possible stroke CVA/Dyshpagia/Aphasia: Yes Cognitive Deficits: Yes Dehydration/Nutrition Deficit: No Reflux: No Oral-Motor Difficulties: No Pneumonia: No [facility] Resident: Yes Total Points: 13 09/17/22 05:00 EKG ROUTINE Comment: Diagnosis: Weakness, possible stroke 09/18/22 05:00 EKG ROUTINE Comment: Diagnosis: Weakness, possible stroke - Discharge Disposition: DC TO ANY "OTHER" LONGTERM Condition: Stable Prescriptions: New Aspirin EC 81 mg [Ecotrin 81 mg] 81 mg PO DAILY #30 tablet Nitrofurantoin Macro 100 mg [Macrobid 100MG Capsule] 100 mg PO BID 10 Days #20 cap Clopidogrel Bisulfate [PLAVIX Tablet] 75 mg PO DAILY #30 tablet Continue Bisoprolol/Hydrochlorothiazide [Bisoprolol-Hctz 5-6.25 mg Tab] 1 each PO DAILY PARoxetine HCL [Paxil] 20 mg PO DAILY Torsemide 10 mg PO DAILY Thiamine HCl 100 mg [Vitamin B-1 100 mg] 100 mg PO DAILY Sumatriptan Succinate [Imitrex] 25 mg PO DAILY PRN PRN PRN Reason: Headache Famotidine [Pepcid AC] 10 mg PO DAILY Mirtazapine 30 mg [Remeron 30 mg] 30 mg PO HS Magnesium Hydroxide 30 ml [Milk of Magnesia 30 ml] 30 ml PO DAILY PRN PRN PRN Reason: Constipation Memantine HCl 5 mg [Namenda 5 MG] 5 mg PO BID Donepezil HCl 10 mg [Aricept 10 MG] 10 mg PO HS Chlordiazepoxide HCl 10 mg [Librium 10 MG] 20 mg PO HS Chlordiazepoxide HCl 10 mg [Librium 10 MG] 10 mg PO DAILY Bisacodyl 10 mg [Dulcolax 10 MG SUPP] 10 mg RC DAILY PRN PRN PRN Reason: Constipation Atorvastatin Calcium 10 mg PO HS Acetaminophen 500 mg [Tylenol Extra Strength 500 mg] 500 mg PO BID Cran/Vitc/Mannose/Fos/Bromeln [Uti-Stat Liquid] 30 ml PO TID HydrALAzine HCL 25 MG TAB [Apresoline 25 MG TABLET] 25 mg PO BID #60 tablet Potassium Chloride 10 meq PO DAILY Loperamide HCl 2 mg [Imodium 2 mg] 2 mg PO Q8HPRN PRN PRN Reason: Diarrhea Polyethylene Glycol 3350 [Miralax] 17 gm PO DAILY Sodium Phosphate,Yellow Medicine-Dibasic [Fleet Enema] 133 ml RC DAILY PRN PRN PRN Reason: Constipation Diphenhydramine HCl 25 mg [Benadryl 25 mg Capsule] 25 mg PO Q6H PRN PRN PRN Reason: Itching Acetaminophen 325 mg [Tylenol 325 mg] 650 mg PO Q4HPRN PRN PRN Reason: Pain And/Or Fever Tramadol HCl 50 mg [Ultram 50 mg] 50 mg PO TID Additional Instructions: RESUME PREVIOUS NH ORDERS SEE MED LIST ATTACHED Follow up with: ENVIVE,ENVIVE [Primary Care Provider] - Forms: Transfer Record [facility]
== END 2022-09-16 16:00 ==
LOC: ED 12:58 → MED SURG 17:39
PROVIDERS: ADMIT Family Medicine; ATTEND Family Medicine
DX: R00.1 Bradycardia, unspecified (principal); N39.0 Urinary tract infection, site not specified; E87.6 Hypokalemia; R53.1 Weakness; F03.90 Unspecified dementia, unspecified severity, without behavioral disturbance, psychotic disturbance, mood disturbance, and anxiety; I10 Essential (primary) hypertension; E78.5 Hyperlipidemia, unspecified; Z79.899 Other long term (current) drug therapy; Z20.828 Contact with and (suspected) exposure to other viral communicable diseases; Z79.01 Long term (current) use of anticoagulants
CPT/HCPCS: 0241U; 36000; 36415; 51702; 70450; 70551; 80053; 80061; 81001; 83721; 84132; 84484; 85025; 87077; 87086; 87186; 93005; 93041; 93268; 94760; 96365; 99285; G0378; J0696; J3480; A9270-GY